=== PATIENT | male | born 1965 | race Caucasian/White ===

== ENCOUNTER 2020-06-25 07:51 | Outpatient (REF) | payer OTHER, SELFPAY ==
--- NOTE | 2020-07-10 | PFT_ITS ---
INDICATIONS: Asthma. SPIROMETRY: FEV1 to FVC of 90% with an FEV1 of 2.74 L which is 87% predicted, and FVC of 4.13 L, which is 73% predicted. The patient did decline a bronchodilator treatment. Maximum voluntary ventilation 82% predicted. LUNG VOLUMES: Total lung capacity is 78% predicted with an expiratory residual volume decreased to 19% predicted likely secondary to an elevated BMI. DIFFUSION CAPACITY: DLCO 80% predicted. COMPARISONS: None. INTERPRETATION: No obstructive ventilatory defect. Again bronchodilators were not used. Normal maximum voluntary ventilation. Lung volumes do demonstrate a mild restrictive ventilatory defect, which could be secondary to his elevated BMI, although cannot rule out neuromuscular conditions. Expiratory reserve volume is significantly decreased due to the elevated BMI. The diffusion capacity is low normal. It does correct to 115% predicted when corrected for volume suggesting hypoexpansion. Further recommendations based on forthcoming data. Clinical correlation warranted. MD ODETTE Brewster/MODIvana / [id number]
== END 2020-06-25 07:52 | disposition home or self-care (01) ==
LOC: HO.RESP 07:51
PROVIDERS: PCP Internal Medicine; Visit Provider Hospitalist
DX: J45.909 Unspecified asthma, uncomplicated (principal); Z87.891 Personal history of nicotine dependence
CPT/HCPCS: 94060; 94727; 94729

== ENCOUNTER → 2020-07-02 09:45 | Outpatient (BNVA) | payer OTHER, SELFPAY | PROVIDERS: PCP Internal Medicine; Referring Provider Internal Medicine; Visit Provider Hospitalist | DX: Z76.89 Persons encountering health services in other specified circumstances (principal) ==

== ENCOUNTER 2021-04-25 11:14 | Outpatient (REF) | payer OTHER, SELFPAY | END 2021-04-25 11:15 | disposition home or self-care (01) | LOC: HO.LNP 11:14 | PROVIDERS: Visit Provider Hospitalist | DX: J01.90 Acute sinusitis, unspecified (principal); Z20.822 Contact with and (suspected) exposure to COVID-19 | CPT/HCPCS: U0003; U0005 ==

== ENCOUNTER 2021-11-22 07:57 | Inpatient (IN) | payer OTHER, SELFPAY ==
[2021-11-22] VITALS (10 sets, daily range): BP systolic 112–178; BP diastolic 64–122; PULSE 70–102; RESP 16–28; TEMP 36.4–36.9; O2SAT 94–96; BMI 42.3
--- NOTE | ~2021-11-22 | US_ITS ---
EXAMINATION: US ABDOMEN COMPLETE CLINICAL INFORMATION: Upper abdominal pain, nausea and vomiting and diarrhea COMPARISON: None TECHNIQUE: Real-time imaging of the abdominal viscera. Exam is limited due to overlying bowel gas and patient body habitus. FINDINGS: PANCREAS: Not well visualized. ABDOMINAL AORTA: Not well visualized INFERIOR VENA CAVA: Visualized portions are normal. LIVER: Not well visualized. The liver is normal in size. The liver contour is normal. Parenchymal echogenicity is normal. No focal hepatic lesion. There is no intrahepatic biliary duct dilatation seen. GALLBLADDER: Normal. The gallbladder is physiologically distended without evidence of stones, sludge, polyps, wall thickening or pericholecystic fluid. COMMON BILE DUCT: Not visualized RIGHT KIDNEY: Normal. No hydronephrosis. No renal calculi or focal parenchymal lesions. The kidney measures 13 cm in maximum dimension. LEFT KIDNEY: Normal. No hydronephrosis. No renal calculi or focal parenchymal lesions. The kidney measures 12 cm in maximum dimension. SPLEEN: The spleen is slightly enlarged. The spleen measures 14 cm in maximum dimension. FREE FLUID: None. US/US abdomen complete IMPRESSION: Very limited exam. Slightly enlarged spleen.
--- NOTE | ~2021-11-22 | CT_ITS ---
EXAMINATION: CT ABDOMEN AND PELVIS WITH CONTRAST CLINICAL INFORMATION: Upper abdominal pain, nausea, vomiting and diarrhea with fevers. COMPARISON: Ultrasound abdomen 11/22/2021 TECHNIQUE: Multidetector volumetric images were obtained from the superior aspect of the liver through the pubic symphysis following administration 85 mL of Omnipaque 350 intravenous contrast. Sagittal and coronal reformatted images were obtained on the technologist's workstation. Oral contrast: No This CT examination was performed using dose optimization techniques as appropriate, variously including the following: *Automated exposure control *Adjustment of mA and/or kV according to patient size (this includes techniques or standardized protocols for targeted exams where dose is matched to indication/reason for exam; i.e. extremities or head) *Use of iterative reconstruction technique DLP: 1571 mGy-cm FINDINGS: LUNG BASES: The lung bases are clear. The heart size is normal. LIVER, GALLBLADDER, AND BILIARY TREE: The liver is normal in size, shape, and attenuation. No focal hepatic lesion or biliary ductal dilatation is present. The gallbladder is unremarkable with no evidence of radiopaque gallstones, gallbladder wall thickening, or obvious pericholecystic inflammatory changes. PANCREAS: Unremarkable. SPLEEN: The spleen measures borderline enlarged measuring 16 cm in length. No focal lesion seen. ADRENAL GLANDS: Unremarkable. KIDNEYS AND URETERS: Both kidneys are normal size, shape and position. There are no radiopaque renal calculi or hydronephrosis. BLADDER: Unremarkable. GASTROINTESTINAL TRACT: There are multiple dilated proximal ileal and distal jejunal loops within no transition zone seen. The most distal ileal loops are of normal caliber. There is no mural thickening or fat stranding. No free air or free fluid seen. The colon is unremarkable. The stomach is distended with oral fluid. There is no pneumatosis. ABDOMINAL WALL: No significant hernia is appreciated. LYMPH NODES: Some shotty lymph nodes are seen in the mediastinum measuring 0.4 cm in short axis and 1.1 cm lymph node in the mesentery axial image 66/3 VASCULAR: The abdominal aorta and its branches are widely patent. No evidence of aneurysm. PELVIC VISCERA: Unremarkable. OSSEOUS STRUCTURES: No free fluid or free air seen. CT/CT abdomen pelvis w con IMPRESSION: Multiple dilated small bowel loops likely jejunum and proximal ileal loops. The distal ileal loops and the terminal ileum appears normal. There is no transition zone or any etiology for mild dilatation. Small shotty mesenteric lymph nodes. No mesenteric fat stranding. Rest of the abdomen and pelvis CT is unremarkable. Fleischner guidelines were followed.
--- NOTE | 2021-11-22 08:20 | ECG_ITS ---
Test Reason : elmogy Blood Pressure : / mmHG Vent. Rate : 087 BPM Atrial Rate : 087 BPM P-R Int : 162 ms QRS Dur : 092 ms QT Int : 354 ms P-R-T Axes : 050 070 051 degrees QTc Int : 425 ms Normal sinus rhythm Normal ECG No previous ECGs available Referred By: Cheyanne Ernst Electronically Signed By:NICOLÁS MARCANO
[2021-11-22 09:46] LABS: MANUAL DIFF FLAG NO
[2021-11-22 09:49] LABS: Basophils Percent Auto 0.4 % (0-2); Eosinophils Percent Auto 0.1 % (0-4); Hematocrit 43.1 % (42.0-52.0); Hemoglobin 14.2 g/dl (14.0-18.0); Imm Gran Abs Auto 0.04 X10*3/uL (0.00-0.03); Imm Gran Pct Auto 0.5 % (0.0-0.4); Lymphocytes Absolute Auto 1.1 X10*3/uL (1.2-4.9); Lymphocytes Percent Auto 13.5 % (20-40); Mean Corpuscular HGB Conc 32.9 g/dl (31.0-36.0); Mean Corpuscular Hemoglobin 26.1 pg (27.0-33.0); Mean Corpuscular Volume 79.1 fL (80.0-98.0); Mean Platelet Volume 8.7 fL (9.4-12.4); Monocytes Absolute Auto 0.9 X10*3/uL (0.1-1.2); Monocytes Percent Auto 10.5 % (2-11); Neutrophils Absolute Auto 6.1 x10*3/uL (2.0-8.3); Platelet Count 240 X10*3/uL (160-400); Red Blood Count 5.45 X10*6/uL (4.60-5.80); White Blood Count 8.1 X10*3/uL (4.8-10.8)
[2021-11-22 09:50] LABS: Appearance Urine CLEAR; Color Urine YELLOW; Glucose Urine UA NEG (NEG); Leukocyte Esterase Urine NEG (NEG); Nitrite Urine NEG (NEG); Specific Gravity - Urine >= 1.030 (1.005-1.025); UACC Culture Trigger NO; Urine Blood TRACE (NEG); Urine Ketones NEG (NEG); Urine Protein TRACE MG/DL (NEG-TRACE)
[2021-11-22 10:04] LABS: Alanine Aminotransferase 25 U/L (0-40); Albumin Level 4.3 g/dL (3.5-5.0); Alkaline Phosphatase 64 U/L (39-117); Anion Gap 14 (12-20); Aspartate Amino Transferase 18 U/L (5-37); Bilirubin Total 0.7 mg/dL (0.0-1.0); Blood Urea Nitrogen 13 mg/dL (9-16); Calcium 9.3 mg/dL (8.4-10.2); Carbon Dioxide 22 mmol/L (22-29); Chloride 102 mmol/L (96-108); Creatinine Clr Calc Pharmacy 135.5; Estimated Glomerular Filt Rate > 60; Glucose Random 130 mg/dL (60-115); IDNOW Serial# 08D9AD1C; Influenza A Negative (Negative); Influenza B2 Negative (Negative); Potassium 3.5 mmol/L (3.3-5.1); Sodium 134 mmol/L (135-145); Total Protein 7.5 g/dL (6.5-8.0)
[2021-11-22 10:08] LABS: COVID-19 Test Negative (Negative); IDNOW Serial# 16C4AD1C
[2021-11-22 10:10] LABS: Troponin-I High Sensitivity < 3.5 ng/L (<3.5-35.0)
[2021-11-22 10:12] LABS: RBC Urine 0-2 /HPF (0); WBC Urine 0-2 /HPF (0-4)
[2021-11-22 10:13] LABS: Amorphous Sediment Urine 1+ /LPF; Mucus Urine 1+ /LPF; Squamous Epithelial Cell Urine TRACE /LPF
--- NOTE | 2021-11-22 10:15 | ED.ABDPAIN ---
HPI - Abdominal Pain General Chief Complaint: Abdominal Pain Stated Complaint: dehydration Time Seen by Provider: 11/22/21 08:18 Source: patient and EMS Mode of arrival: EMS Limitations: no limitations History of Present Illness HPI narrative: 56-year-old male with a past medical history of chronic restrictive lung disease and obstructive sleep apnea treated with BiPAP presenting to the ED with complaints of 2 days of fevers up to 102.0 with associated chills, nausea/vomiting/diarrhea and periumbilical abdominal pain. He reports he has been vomiting and having so much diarrhea that now he has developed some lightheadedness. He denies any changes in vision, neck pain, loss of taste or smell, nasal congestion/rhinorrhea, sore throat, cough, chest pain or shortness of breath, paresthesias, extremity or joint pain, rashes, recent travel or sick contacts, dyspnea on exertion, orthopnea, palpitations, radiation of the abdominal pain, back pain, dysuria, hematuria, abnormal penile discharge, black or bloody stools, black or bloody emesis, recent antibiotic usage or recent surgery, recent falls or trauma or injury, history of similar episodes or any other symptoms complaints or concerns at this time. MD elicited complaint: abdominal pain Pertinent past history: none Onset (ago): day(s) (2) Pain Consistency: constant Location: periumbilical Severity: moderate Quality: cramping and aching Radiation: none Migration to: no migration Exacerbating factors: eating, bowel movement and vomiting Relieving factors: nothing Associated symptoms: nausea, vomiting, diarrhea, fever, chills and other (Lightheadedness) Related Data Home Medications Medication Instructions Recorded Confirmed aspirin 81 mg tablet,delayed 81 mg PO BEDTIME 07/02/20 11/22/21 release lisinopril 10 mg tablet 10 mg PO BEDTIME 07/02/20 11/22/21 lorazepam 0.5 mg tablet 0.5 mg PO DAILY PRN 07/02/20 11/22/21 albuterol sulfate 90 mcg/actuation 2 puff PO Q6H PRN 11/22/21 11/22/21 aerosol inhaler Allergies Allergy/AdvReac Type Severity Reaction Status Date / Time Amoxicillin Allergy Mild Hives Uncoded 07/02/20 20:05 PCN Allergy Mild Hives Uncoded 07/02/20 20:05 Review of Systems Review of Systems Constitutional : + fever/chills/fatigue/malaise, No Weight loss, No Night Sweats ENT/Mouth : No Hearing loss, No Ear Pain, No Nasal Congestion, No Sinus Pain, No Hoarseness, No sore throat, No Rhinorrhea, No Swallowing Difficulty Eyes: No Eye Pain, No Swelling, No Redness, No Foreign Body, No Discharge, No Vision Changes Cardiovascular : No Chest Pain, No SOB, No Dyspnea on Exertion, No Orthopnea, No Edema, No Palpitations Respiratory : No Cough, No Sputum, No Wheezing, No Smoke Exposure, No Dyspnea Gastrointestinal : + nausea/vomiting/diarrhea and periumbilical abdominal pain, No Constipation, No Hematochezia, No Melena Genitourinary : no irregular bleeding, No Dysuria, No Urinary Frequency, No Hematuria, No Urinary Incontinence, No Urgency, No Flank Pain, No Urinary Flow Changes, No Hesitancy Musculoskeletal : No joint pain, No Myalgias, No Joint Swelling Skin : No Skin Lesions, No rash Neuro : No Weakness, No Numbness, No Paresthesias, No Loss of Consciousness, No Dizziness, No Headache Psych : No Anxiety/Panic, No Depression, No SI/HI/AH/VH, No Social Issues, Heme/Lymph: No Bruising, No Bleeding,No Lymphadenopathy Endocrine : No Polyuria, No Polydipsia, No Temperature Intolerance Yes all other systems are reviewed and are negative [facility] Past Medical History Attestation statement: The following information was validated with the patient. Medical History Chronic restrictive lung disease Dyspnea BRICE treated with BiPAP Social History Social History Alcohol intake: never Patient Tobacco Use Status: Never used Tobacco Use of substances other than those prescribed or required for medical reasons: No Advance Directives: Yes Advance Directives Information Provided: Yes Advance Directives on File: No Physical Exam ED Vital Signs: Vital Signs - 24 hr 11/22/21 09:48 11/22/21 09:49 11/22/21 09:50 Pulse Rate 82 89 102 H Blood Pressure 128/83 134/75 130/78 BMI result Body Mass Index 42.3 Vital signs have been reviewed and all within normal limits Appearance: Alert. Oriented X3. No acute distress. Head: Normal external exam. Normocephalic. Eyes: PERRLA. EOMI. Conjunctiva and sclera normal. Eyelids normal. ENT: Pharynx normal. Uvula midline. Moist mucous membranes. No trismus noted. No drooling noted. No muffled voice noted. Neck: Normal inspection. Neck supple. FROM. No adenopathy. No meningeal signs. CVS: Normal heart rate and rhythm. Heart sound normal. No murmurs noted. Pulses normal throughout. Respiratory: No respiratory distress. Painless inspiration. Breath sounds normal. No wheezes/rales/rhonchi noted. Chest nontender. No accessory muscle usage noted or decreased air movement noted. Abdomen: Soft and mild tenderness to the epigastric/upper abdomen/periumbilical area. Nondistended. No guarding. No rigidity. Bowel sounds normal in all 4 quadrants. No distention noted. No organomegaly noted. No visible injury noted. No rebound tenderness. Negative Rovsing sign. Negative obturator's sign. Negative psoas sign. Negative Negrete sign. Back: No CVA tenderness. Full range of motion noted. Skin: Skin warm and dry. Normal skin color. Normal skin turgor. No rashes/lesions/lacerations noted. Extremities: Extremities exhibit normal range of motion. Extremities nontender. No lower extremity edema or calf tenderness noted. Neuro: Oriented X 3. No motor deficit. No sensory deficit. Reflexes normal. Normal steady gait. CN's II-XII intact bilaterally? Vascular: +2 radial pulses bilaterally. +2 distal pedal pulses bilaterally. Normal capillary refill to all upper and lower extremity nails. No cyanosis noted to upper lower extremities. Course Course Course Narrative: 9:30am - 56-year-old male with a past medical history of chronic restrictive lung disease and obstructive sleep apnea treated with BiPAP presenting to the ED with complaints of 2 days of fevers up to 102.0 with associated chills, nausea/vomiting/diarrhea and periumbilical abdominal pain. He reports he has been vomiting and having so much diarrhea that now he has developed some lightheadedness. Plan: Labs, UA, COVID influenza swab, stool culture, C diff culture, CT scan abdomen and pelvis with IV contrast, orthostatic vitals, EKG. Provide a L of IV fluids and re-evaluate. Reevaluation(s) Reevaluation #1: - labs revealed and sodium 134. Random glucose 130. Otherwise all other labs are within normal limits. UA within normal limits no evidence of UTI. Patient negative for C diff. Patient negative for leukocytes in the stool. Patient negative for COVID and influenza. - CT scan abdomen pelvis with IV contrast revealed an ileus otherwise no other acute processes were noted. Not c/w c a bowel obstruction - therefore I discussed this with the patient and due to him complaining of nausea/vomiting and diarrhea and diffuse abdominal pain unable to keep anything down will admit for ileus with associated nausea/vomiting/diarrhea and fevers. Patient understands agrees with this plan. - Dr. Oliver to admit at this time. Time: 12:02 [facility] - Abdominal Pain Medical Records Attestation: I reviewed the patient's medical records. Lab Data Attestation: I reviewed the patient's lab results. Result diagrams: 11/22/21 09:41 11/22/21 09:41 Labs: Lab Results 11/22/21 11/22/21 11/22/21 Range/Units 09:41 09:41 09:41 WBC 8.1 (4.8-10.8) X10*3/uL RBC 5.45 (4.60-5.80) X10*6/uL Hgb 14.2 (14.0-18.0) g/dl Hct 43.1 (42.0-52.0) % MCV 79.1 L (80.0-98.0) fL MCH 26.1 L (27.0-33.0) pg MCHC 32.9 (31.0-36.0) g/dl RDW 13.0 (11.0-16.0) % Plt Count 240 (160-400) X10*3/uL MPV 8.7 L (9.4-12.4) fL Immature Gran % (Auto) 0.5 H (0.0-0.4) % Neut % (Auto) 75.0 H (45-73) % Lymph % (Auto) 13.5 L (20-40) % [place] % (Auto) 10.5 (2-11) % Eos % (Auto) 0.1 (0-4) % Baso % (Auto) 0.4 (0-2) % Lymph # (Auto) 1.1 L (1.2-4.9) X10*3/uL [place] # (Auto) 0.9 (0.1-1.2) X10*3/uL Eos # (Auto) 0.0 (0.0-0.4) X10*3/uL Baso # (Auto) 0.0 (0.0-0.2) X10*3/uL Abs Immat Gran (auto) 0.04 H (0.00-0.03) X10*3/uL Absolute Neuts (auto) 6.1 (2.0-8.3) x10*3/uL Absolute Nucleated RBC 0.000 (0.0-0.012) X10*3/uL Nucleated RBC % (auto) 0.0 (0.0-0.2) /100WBC Sodium 134 L (135-145) mmol/L Potassium 3.5 (3.3-5.1) mmol/L Chloride 102 (96-108) mmol/L Carbon Dioxide 22 (22-29) mmol/L Anion Gap 14 (12-20) BUN 13 (9-16) mg/dL Creatinine 0.94 (0.5-1.4) mg/dL Estim Creat Clear Calc 135.5 Estimated GFR > 60 Random Glucose 130 H (60-115) mg/dL Calcium 9.3 (8.4-10.2) mg/dL Total Bilirubin 0.7 (0.0-1.0) mg/dL AST 18 (5-37) U/L ALT 25 (0-40) U/L Alkaline Phosphatase 64 (39-117) U/L Troponin I High Sens (<3.5-35.0) ng/L Total Protein 7.5 (6.5-8.0) g/dL Albumin 4.3 (3.5-5.0) g/dL Lipase 14 (8-78) U/L Urine Color Urine Appearance Urine pH (5.0-8.0) Ur Specific [place] (1.005-1.025) Urine Protein (NEG-TRACE) MG/DL Urine Glucose (UA) (NEG) MG/DL Urine Ketones (NEG) MG/DL Urine Blood (NEG) Urine Nitrite (NEG) Ur Leukocyte Esterase (NEG) Urine RBC (0) /HPF Urine WBC (0-4) /HPF Ur Squamous Epith Cells /LPF Amorphous Sediment /LPF Urine Bacteria /LPF Urine Mucus /LPF Stool Leukocytes, Qual (NEGATIVE) C. difficile Tox B Gene (Negative) COVID-19 (ANJALI) (Negative) COVID-19 Clin Com Influenza Type A (ABDON) Negative (Negative) Influenza Type B (ABDON) Negative (Negative) Influenza A & B Note See Note 11/22/21 11/22/21 11/22/21 Range/Units 09:41 09:41 09:41 WBC (4.8-10.8) X10*3/uL RBC (4.60-5.80) X10*6/uL Hgb (14.0-18.0) g/dl Hct (42.0-52.0) % MCV (80.0-98.0) fL MCH (27.0-33.0) pg MCHC (31.0-36.0) g/dl RDW (11.0-16.0) % Plt Count (160-400) X10*3/uL MPV (9.4-12.4) fL Immature Gran % (Auto) (0.0-0.4) % Neut % (Auto) (45-73) % Lymph % (Auto) (20-40) % [place] % (Auto) (2-11) % Eos % (Auto) (0-4) % Baso % (Auto) (0-2) % Lymph # (Auto) (1.2-4.9) X10*3/uL [place] # (Auto) (0.1-1.2) X10*3/uL Eos # (Auto) (0.0-0.4) X10*3/uL Baso # (Auto) (0.0-0.2) X10*3/uL Abs Immat Gran (auto) (0.00-0.03) X10*3/uL Absolute Neuts (auto) (2.0-8.3) x10*3/uL Absolute Nucleated RBC (0.0-0.012) X10*3/uL Nucleated RBC % (auto) (0.0-0.2) /100WBC Sodium (135-145) mmol/L Potassium (3.3-5.1) mmol/L Chloride (96-108) mmol/L Carbon Dioxide (22-29) mmol/L Anion Gap (12-20) BUN (9-16) mg/dL Creatinine (0.5-1.4) mg/dL Estim Creat Clear Calc Estimated GFR Random Glucose (60-115) mg/dL Calcium (8.4-10.2) mg/dL Total Bilirubin (0.0-1.0) mg/dL AST (5-37) U/L ALT (0-40) U/L Alkaline Phosphatase (39-117) U/L Troponin I High Sens < 3.5 (<3.5-35.0) ng/L Total Protein (6.5-8.0) g/dL Albumin (3.5-5.0) g/dL Lipase (8-78) U/L Urine Color YELLOW Urine Appearance CLEAR Urine pH 6.0 (5.0-8.0) Ur Specific [place] >= 1.030 H (1.005-1.025) Urine Protein TRACE (NEG-TRACE) MG/DL Urine Glucose (UA) NEG (NEG) MG/DL Urine Ketones NEG (NEG) MG/DL Urine Blood TRACE (NEG) Urine Nitrite NEG (NEG) Ur Leukocyte Esterase NEG (NEG) Urine RBC 0-2 (0) /HPF Urine WBC 0-2 (0-4) /HPF Ur Squamous Epith Cells TRACE /LPF Amorphous Sediment 1+ /LPF Urine Bacteria NONE /LPF Urine Mucus 1+ /LPF Stool Leukocytes, Qual (NEGATIVE) C. difficile Tox B Gene (Negative) COVID-19 (ANJALI) Negative (Negative) COVID-19 Clin Com See Note Influenza Type A (ABDON) (Negative) Influenza Type B (ABDON) (Negative) Influenza A & B Note 11/22/21 11/22/21 Range/Units 09:42 09:42 WBC (4.8-10.8) X10*3/uL RBC (4.60-5.80) X10*6/uL Hgb (14.0-18.0) g/dl Hct (42.0-52.0) % MCV (80.0-98.0) fL MCH (27.0-33.0) pg MCHC (31.0-36.0) g/dl RDW (11.0-16.0) % Plt Count (160-400) X10*3/uL MPV (9.4-12.4) fL Immature Gran % (Auto) (0.0-0.4) % Neut % (Auto) (45-73) % Lymph % (Auto) (20-40) % [place] % (Auto) (2-11) % Eos % (Auto) (0-4) % Baso % (Auto) (0-2) % Lymph # (Auto) (1.2-4.9) X10*3/uL [place] # (Auto) (0.1-1.2) X10*3/uL Eos # (Auto) (0.0-0.4) X10*3/uL Baso # (Auto) (0.0-0.2) X10*3/uL Abs Immat Gran (auto) (0.00-0.03) X10*3/uL Absolute Neuts (auto) (2.0-8.3) x10*3/uL Absolute Nucleated RBC (0.0-0.012) X10*3/uL Nucleated RBC % (auto) (0.0-0.2) /100WBC Sodium (135-145) mmol/L Potassium (3.3-5.1) mmol/L Chloride (96-108) mmol/L Carbon Dioxide (22-29) mmol/L Anion Gap (12-20) BUN (9-16) mg/dL Creatinine (0.5-1.4) mg/dL Estim Creat Clear Calc Estimated GFR Random Glucose (60-115) mg/dL Calcium (8.4-10.2) mg/dL Total Bilirubin (0.0-1.0) mg/dL AST (5-37) U/L ALT (0-40) U/L Alkaline Phosphatase (39-117) U/L Troponin I High Sens (<3.5-35.0) ng/L Total Protein (6.5-8.0) g/dL Albumin (3.5-5.0) g/dL Lipase (8-78) U/L Urine Color Urine Appearance Urine pH (5.0-8.0) Ur Specific [place] (1.005-1.025) Urine Protein (NEG-TRACE) MG/DL Urine Glucose (UA) (NEG) MG/DL Urine Ketones (NEG) MG/DL Urine Blood (NEG) Urine Nitrite (NEG) Ur Leukocyte Esterase (NEG) Urine RBC (0) /HPF Urine WBC (0-4) /HPF Ur Squamous Epith Cells /LPF Amorphous Sediment /LPF Urine Bacteria /LPF Urine Mucus /LPF Stool Leukocytes, Qual NEGATIVE (NEGATIVE) C. difficile Tox B Gene NEGATIVE (Negative) COVID-19 (ANJALI) (Negative) COVID-19 Clin Com Influenza Type A (ABDON) (Negative) Influenza Type B (ABDON) (Negative) Influenza A & B Note Imaging Data Abdominal ultrasound: Attestation: I personally reviewed and interpreted this imaging study as follows: Radiologist's impression: FINDINGS: PANCREAS: Not well visualized. ABDOMINAL AORTA: Not well visualized INFERIOR VENA CAVA: Visualized portions are normal. LIVER: Not well visualized. The liver is normal in size. The liver contour is normal. Parenchymal echogenicity is normal. No focal hepatic lesion. There is no intrahepatic biliary duct dilatation seen. GALLBLADDER: Normal. The gallbladder is physiologically distended without evidence of stones, sludge, polyps, wall thickening or pericholecystic fluid. COMMON BILE DUCT: Not visualized RIGHT KIDNEY: Normal. No hydronephrosis. No renal calculi or focal parenchymal lesions. The kidney measures 13 cm in maximum dimension. LEFT KIDNEY: Normal. No hydronephrosis. No renal calculi or focal parenchymal lesions. The kidney measures 12 cm in maximum dimension. SPLEEN: The spleen is slightly enlarged. The spleen measures 14 cm in maximum dimension. FREE FLUID: None. US/US abdomen complete IMPRESSION: Very limited exam. Slightly enlarged spleen. CT scan abdomen pelvis with IV contrast: Attestation: I personally reviewed and interpreted this imaging study as follows: Radiologist's impression: FINDINGS: LUNG BASES: The lung bases are clear. The heart size is normal.? LIVER, GALLBLADDER, AND BILIARY TREE: The liver is normal in size, shape, and attenuation. No focal hepatic lesion or biliary ductal dilatation is present. The gallbladder is unremarkable with no evidence of radiopaque gallstones, gallbladder wall thickening, or obvious pericholecystic inflammatory changes.? PANCREAS: Unremarkable.? SPLEEN: The spleen measures borderline enlarged measuring 16 cm in length. No focal lesion seen.? ADRENAL GLANDS: Unremarkable.? KIDNEYS AND URETERS: Both kidneys are normal size, shape and position. There are no radiopaque renal calculi or hydronephrosis.? BLADDER: Unremarkable.? GASTROINTESTINAL TRACT: There are multiple dilated proximal ileal and distal jejunal loops within no transition zone seen. The most distal ileal loops are of normal caliber. There is no mural thickening or fat stranding. No free air or free fluid seen. The colon is unremarkable. The stomach is distended with oral fluid. There is no pneumatosis. ABDOMINAL WALL: No significant hernia is appreciated.? LYMPH NODES: Some shotty lymph nodes are seen in the mediastinum measuring 0.4 cm in short axis and 1.1 cm lymph node in the mesentery axial image 66/3 VASCULAR: The abdominal aorta and its branches are widely patent. No evidence of aneurysm. PELVIC VISCERA: Unremarkable.? OSSEOUS STRUCTURES: No free fluid or free air seen.? CT/CT abdomen pelvis w con IMPRESSION: Multiple dilated small bowel loops likely jejunum and proximal ileal loops. The distal ileal loops and the terminal ileum appears normal. There is no transition zone or any etiology for mild dilatation. ? Small shotty mesenteric lymph nodes. No mesenteric fat stranding. ? Rest of the abdomen and pelvis CT is unremarkable. ? Fleischner guidelines were followed. ECG Data Attestation: I personally reviewed and interpreted this ECG as follows: ECG interpretation date: 11/22/21 ECG interpretation time: 08:27 Prior ECG tracings: not available for review Interpretation: Normal sinus rhythm with ventricular rate of 87 with a normal [place] interval normal QRS duration normal QT/QTC interval. No acute ischemic change are noted. No prior EKGs in our system to compare to at this time. Critical Care Time Critical Care Time Critical Care Time: Yes Total Critical Care Time: 60 Attestation: I personally attest to this time spent taking care of the patient Discharge Plan Discharge Clinical Impression: Ileus, Nausea & vomiting, Diarrhea Patient Disposition: Admitted As Inpatient
[2021-11-22 10:38] LABS: Lipase 14 U/L (8-78)
[2021-11-22] MEDS: iohexoL 350 MG/ML 100 ML INFUS..BTL IV (10:39)
[2021-11-22 10:55] LABS: CDiff Gene PCR NEGATIVE (Negative)
[2021-11-22] MEDS: Famotidine/PF 20 MG/2 ML VIAL IVPUSH (11:28)
[2021-11-22 11:44] LABS: Leukocytes Stool Qualitative NEGATIVE (NEGATIVE)
--- NOTE | 2021-11-22 12:13 | PHA.MEDREC ---
Pharmacy Consult ? Medication Reconciliation Pharmacy has completed the medication reconciliation. There are no remarkable issues for provider's attention. Karla Guzman, MakaylaD
--- NOTE | 2021-11-22 13:29 | PM.IMHP ---
History of Present Illness Date of Service: 11/22/21 Chief Complaint: fever, vomiting, diarrhea 56 year-old male with BRICE on BiPAP, morbid obesity, HTN presenting with 2 days of fever up to 102F with chills, nausea, vomiting, and watery diarrhea along with generalized abodminal cramping. Feels lightheaded from all of the vomiting. No hematemesis, hematochezia, dysuria, or hematuria. No recent high overseas travel, camping, or high-risk food exposures. No sick contacts but he liesv alone. No recent antibiotic usage. In the ED, stool for Clostridium difficile was negative and fecal leukocytes were negative. CT scan of the abdomen and pelvis showed ileus and mesenteric lymphadenopathy. [facility]LY [facility] Medical History Chronic restrictive lung disease Dyspnea BRICE treated with BiPAP Family History (Updated 11/22/21 @ 13:49 by Felix Oliver MD) Brother Diabetes Social History Alcohol intake: never Patient Tobacco Use Status: Never used Tobacco Use of substances other than those prescribed or required for medical reasons: No Advance Directives: Yes Advance Directives Information Provided: Yes Advance Directives on File: No Meds Allergies Allergy/AdvReac Type Severity Reaction Status Date / Time Amoxicillin Allergy Mild Hives Uncoded 07/02/20 20:05 PCN Allergy Mild Hives Uncoded 07/02/20 20:05 Active Medications: Current Medications Acetaminophen (Acetaminophen 325 Mg Tablet) 650 mg PO Q6H PRN PRN Reason: Pain, Mild (Pain Scale 1-3) Albuterol Sulfate (Albuterol Sulfate 90 Mcg 8 Gm Inhaler) 2 puff INHALE Q6H PRN PRN Reason: Wheezing Aspirin (Aspirin Enteric Coated 81 Mg Tablet.Dr) 81 mg PO BEDTIME TIFFANIE Enoxaparin Sodium (Enoxaparin Sodium 40 Mg/0.4 Ml Syringe) 40 mg SUBCUT Q24H TIFFANIE Lactated Ringer's (Lr) 1,000 mls @ 125 mls/hr IVCONT .Q8H TIFFANIE Lisinopril (Lisinopril 10 Mg Tablet) 10 mg PO BEDTIME TIFFANIE; Protocol Lorazepam (Lorazepam 0.5 Mg Tablet) 0.5 mg PO DAILY PRN PRN Reason: Anxiety Ondansetron HCl (Ondansetron Hcl 4 Mg/2 Ml Vial) 4 mg IVPUSH Q8H PRN PRN Reason: Nausea and Vomiting Pharmacy Consult (Consult Rx Perform Med Rec) 1 each MISCELLANE ONCE PRN PRN Reason: Consult order Sodium Chloride (0.9 % Sodium Chloride Flush 3 Ml Syringe) [address] [facility] Home Medications Medication Instructions Recorded Confirmed Last Taken Type aspirin 81 mg tablet,delayed 81 mg PO BEDTIME 07/02/20 11/22/21 Unknown History release lisinopril 10 mg tablet 10 mg PO BEDTIME 07/02/20 11/22/21 Unknown History lorazepam 0.5 mg tablet 0.5 mg PO DAILY PRN 07/02/20 11/22/21 Unknown History albuterol sulfate 90 mcg/actuation 2 puff PO Q6H PRN 11/22/21 11/22/21 Unknown History aerosol inhaler Physical Exam Vital Signs and Narrative: Vital Signs: Last Vital Signs Pulse 102 H 11/22/21 09:50 BP 130/78 11/22/21 09:50 BMI result Body Mass Index 42.3 Gen: in no acute distress HEENT: sclera anicteric, moist mucus membranes Neck: supple Lungs: clear to auscultation bilaterally Heart: regular rate and rhythm, no murmurs Abd: soft, obese, diffuse tenderness without rebound/guarding Ext: no edema Skin: warm/well-perfused Neuro: alert and oriented x3, no focal findings Psych: appropriate affect Results Labs CBC and Chem 7: 11/22/21 09:41 11/22/21 09:41 Labs: Laboratory Results - last 24 hr 11/22/21 11/22/21 11/22/21 09:41 09:41 09:41 MCV 79.1 L MCH 26.1 L MCHC 32.9 RDW 13.0 Plt Count 240 MPV 8.7 L Immature Gran % (Auto) 0.5 H Neut % (Auto) 75.0 H Lymph % (Auto) 13.5 L L[place] % (Auto) 10.5 Eos % (Auto) 0.1 Baso % (Auto) 0.4 Lymph # (Auto) 1.1 L [place] # (Auto) 0.9 Eos # (Auto) 0.0 Baso # (Auto) 0.0 Abs Immat Gran (auto) 0.04 H Absolute Neuts (auto) 6.1 Absolute Nucleated RBC 0.000 Nucleated RBC % (auto) 0.0 Anion Gap 14 Estim Creat Clear Calc 135.5 Estimated GFR > 60 Random Glucose 130 H Calcium 9.3 Total Bilirubin 0.7 AST 18 ALT 25 Alkaline Phosphatase 64 Total Protein 7.5 Albumin 4.3 Lipase 14 Urine Color Urine Appearance Urine pH Ur Specific [place] Urine Protein Urine Glucose (UA) Urine Ketones Urine Blood Urine Nitrite Ur Leukocyte Esterase Urine RBC Urine WBC Ur Squamous Epith Cells Amorphous Sediment Urine Bacteria Urine Mucus Stool Leukocytes, Qual C. difficile Tox B Gene COVID-19 (ANJALI) COVID-19 Clin Com Influenza Type A (ABDON) Negative Influenza Type B (ABDON) Negative Influenza A & B Note See Note 11/22/21 11/22/21 11/22/21 09:41 09:41 09:42 MCV MCH MCHC RDW Plt Count MPV Immature Gran % (Auto) Neut % (Auto) Lymph % (Auto) [place] % (Auto) Eos % (Auto) Baso % (Auto) Lymph # (Auto) [place] # (Auto) Eos # (Auto) Baso # (Auto) Abs Immat Gran (auto) Absolute Neuts (auto) Absolute Nucleated RBC Nucleated RBC % (auto) Anion Gap Estim Creat Clear Calc Estimated GFR Random Glucose Calcium Total Bilirubin AST ALT Alkaline Phosphatase Total Protein Albumin Lipase Urine Color YELLOW Urine Appearance CLEAR Urine pH 6.0 Ur Specific [place] >= 1.030 H Urine Protein TRACE Urine Glucose (UA) NEG Urine Ketones NEG Urine Blood TRACE Urine Nitrite NEG Ur Leukocyte Esterase NEG Urine RBC 0-2 Urine WBC 0-2 Ur Squamous Epith Cells TRACE Amorphous Sediment 1+ Urine Bacteria NONE Urine Mucus 1+ Stool Leukocytes, Qual NEGATIVE C. difficile Tox B Gene COVID-19 (ANJALI) Negative COVID-19 Clin Com See Note Influenza Type A (ABDON) Influenza Type B (ABDON) Influenza A & B Note 11/22/21 09:42 MCV MCH MCHC RDW Plt Count MPV Immature Gran % (Auto) Neut % (Auto) Lymph % (Auto) Luce % (Auto) Eos % (Auto) Baso % (Auto) Lymph # (Auto) Luce # (Auto) Eos # (Auto) Baso # (Auto) Abs Immat Gran (auto) Absolute Neuts (auto) Absolute Nucleated RBC Nucleated RBC % (auto) Anion Gap Estim Creat Clear Calc Estimated GFR Random Glucose Calcium Total Bilirubin AST ALT Alkaline Phosphatase Total Protein Albumin Lipase Urine Color Urine Appearance Urine pH Ur Specific [place] Urine Protein Urine Glucose (UA) Urine Ketones Urine Blood Urine Nitrite Ur Leukocyte Esterase Urine RBC Urine WBC Ur Squamous Epith Cells Amorphous Sediment Urine Bacteria Urine Mucus Stool Leukocytes, Qual C. difficile Tox B Gene NEGATIVE COVID-19 (ANJALI) COVID-19 Clin Com Influenza Type A (ABDON) Influenza Type B (ABDON) Influenza A & B Note ITS Impressions Abdomen Ultrasound 11/22/21 09:31 IMPRESSION: Very limited exam. Slightly enlarged spleen. Abdomen/Pelvis CT 11/22/21 10:40 IMPRESSION: Multiple dilated small bowel loops likely jejunum and proximal ileal loops. The distal ileal loops and the terminal ileum appears normal. There is no transition zone or any etiology for mild dilatation. Small shotty mesenteric lymph nodes. No mesenteric fat stranding. Rest of the abdomen and pelvis CT is unremarkable. Fleischner guidelines were followed. Imaging Radiologist's Impressions: Impressions Abdomen Ultrasound 11/22/21 09:31 IMPRESSION: Very limited exam. Slightly enlarged spleen. Abdomen/Pelvis CT 11/22/21 10:40 IMPRESSION: Multiple dilated small bowel loops likely jejunum and proximal ileal loops. The distal ileal loops and the terminal ileum appears normal. There is no transition zone or any etiology for mild dilatation. Small shotty mesenteric lymph nodes. No mesenteric fat stranding. Rest of the abdomen and pelvis CT is unremarkable. Fleischner guidelines were followed. Assessment and Plan (1) Ileus: Status: Acute Plan 56yo M with morbid obesity, BRICE on CPAP presenting with 2 days of nausea, vomiting, and watery diarrhea with fever and found to have ileus # ileus - admit to Med/Surg, bowel rest, IV fluids - likely secondary to gastroenteritis; follow stool cultures; prn loperamide # BRICE - CPAP at night # HTN - lisinopril # anxiety - prn lorazepam # morbid obesity - outpt bariatrics eval to be considered # VTE ppx - LMWH # code - full In my professional opinion, patient likely will stay 2 midnights in hospital due to the above reasons: ileus, NPO, IV fluids. Quality Stroke Does the patient have a stroke diagnosis?: No VTE Prior VTE?: No VTE Risk Level:: Medical - moderate - high VTE Device Contraindication: N/A - Device Ordered VTE Drug Contraindication: N/A - Med Ordered
[2021-11-22 13:47] LABS: C Reactive Protein 8.42 mg/dL (< or = 0.50)
[2021-11-22] MEDS: Lactated Ringers 1,000 ML 125 ML IVCONT ×2 (14:27→21:56)
--- NOTE | 2021-11-22 14:32 | PC.NURSE ---
pt state diarrhea 7-8 times since in ed today. aware.
[2021-11-22] MEDS: Loperamide HCl 2 MG CAPSULE PO (14:42)
--- NOTE | 2021-11-22 15:58 | PC.NURSE ---
Attempt to call floor with report, no answer, will try again.
--- NOTE | 2021-11-22 16:50 | PC.NURSE ---
Second attempt at report, RN to call back
[2021-11-22] MEDS: Aspirin Enteric Coated 81 MG TABLET.DR PO (20:43)
[2021-11-22] MEDS: lisinopriL 10 MG TABLET PO (20:43)
[2021-11-23 05:48] LABS: MANUAL DIFF FLAG NO
[2021-11-23 05:54] LABS: Basophils Percent Auto 0.5 % (0-2); Eosinophils Absolute Auto 0.2 X10*3/uL (0.0-0.4); Eosinophils Percent Auto 2.6 % (0-4); Hemoglobin 13.4 g/dl (14.0-18.0); Imm Gran Abs Auto 0.05 X10*3/uL (0.00-0.03); Imm Gran Pct Auto 0.7 % (0.0-0.4); Lymphocytes Absolute Auto 2.2 X10*3/uL (1.2-4.9); Lymphocytes Percent Auto 29.6 % (20-40); Mean Corpuscular HGB Conc 32.7 g/dl (31.0-36.0); Mean Corpuscular Hemoglobin 25.8 pg (27.0-33.0); Mean Platelet Volume 9.3 fL (9.4-12.4); Monocytes Absolute Auto 0.9 X10*3/uL (0.1-1.2); Monocytes Percent Auto 12.6 % (2-11); Platelet Count 243 X10*3/uL (160-400); Red Blood Count 5.19 X10*6/uL (4.60-5.80); White Blood Count 7.4 X10*3/uL (4.8-10.8)
[2021-11-23] MEDS: Lactated Ringers 1,000 ML 125 ML IVCONT ×3 (06:04→22:27)
[2021-11-23 06:07] VITALS: PULSE 74; RESP 23; O2SAT 97
[2021-11-23 06:10] LABS: Anion Gap 15 (12-20); Blood Urea Nitrogen 11 mg/dL (9-16); Calcium 8.9 mg/dL (8.4-10.2); Carbon Dioxide 22 mmol/L (22-29); Chloride 104 mmol/L (96-108); Creatinine Clr Calc Pharmacy 155.3; Estimated Glomerular Filt Rate > 60; Glucose Random 99 mg/dL (60-115); Potassium 3.5 mmol/L (3.3-5.1); Sodium 137 mmol/L (135-145)
[2021-11-23 07:44] VITALS: BP 112/69; PULSE 76; RESP 19; TEMP 36.9; O2SAT 95
--- NOTE | 2021-11-23 09:06 | MHC.CM.PN ---
PT REPORTS HE LIVES ALONE AND IS INDEPENDENT WITH CARE PT HAS NO HOME SERVICES AND ONLY A BIPAP FOR DME PT REPORTS HE HAS A HCP NAMING HIS DAUGHTER, SATURNINO, HIS AGENT COPY REQUESTED PT CONFIRMS HIS PCP IS LINDSEY MOORE PT REPORTS HE IS COVID-19 VACCINATED WITH PFIZER X 3 CURRENT DC PLAN IS HOME WITH NO SERVICES DAUGHTER TO TRANSPORT
--- NOTE | 2021-11-23 10:59 | HO.PM.IMPN ---
Subjective Subjective Date of Service: 11/23/21 Interval History: Nausea improved, wants to try clear liquids Passing gas + watery stool Abd pain improved Review of Systems Review of Systems: Yes all other systems are reviewed and are negative Physical Exam Vital Signs: Vital Signs: Last Vital Signs Temp 98.5 F 11/23/21 07:44 Pulse 76 11/23/21 07:44 Resp 19 11/23/21 07:44 BP 112/69 11/23/21 07:44 Pulse Ox 95 11/23/21 07:44 BMI result Body Mass Index 42.3 Gen: in no acute distress HEENT: sclera anicteric, moist mucus membranes Neck: supple Lungs: clear to auscultation bilaterally Heart: regular rate and rhythm, no murmurs Abd: soft, obese, nontender Ext: no edema Skin: warm/well-perfused Neuro: alert and oriented x3, no focal findings Psych: appropriate affect Objective Data Active Medications Acetaminophen (Acetaminophen 325 Mg Tablet) 650 mg PO Q6H PRN PRN Reason: Pain, Mild (Pain Scale 1-3) Albuterol Sulfate (Albuterol Sulfate 90 Mcg 8 Gm Inhaler) 2 puff INHALE Q6H PRN PRN Reason: Wheezing Aspirin (Aspirin Enteric Coated 81 Mg Tablet.Dr) 81 mg PO BEDTIME ON LICENSE OF [facility] Last Admin: 11/22/21 20:43 Dose: 81 mg Documented by: ONOFRE Enoxaparin Sodium (Enoxaparin Sodium 40 Mg/0.4 Ml Syringe) 40 mg SUBCUT Q24H ON LICENSE OF [facility] Last Admin: 11/22/21 14:37 Dose: Not Given Documented by: STANLEY Non-Admin Reason: Patient Refused Lactated Ringer's (Lr) 1,000 mls @ 125 mls/hr IVCONT .Q8H TIFFANIE Last Admin: 11/23/21 06:04 Dose: 125 mls/hr Documented by: ODRISM Lisinopril (Lisinopril 10 Mg Tablet) 10 mg PO BEDTIME ON LICENSE OF [facility]; Protocol Last Admin: 11/22/21 20:43 Dose: 10 mg Documented by: ONOFRE Loperamide HCl (Loperamide Hcl 2 Mg Capsule) 2 mg PO Q4H PRN PRN Reason: diarrhea Last Admin: 11/22/21 14:42 Dose: 2 mg Documented by: HO.SCOC Lorazepam (Lorazepam 0.5 Mg Tablet) 0.5 mg PO DAILY PRN PRN Reason: Anxiety Ondansetron HCl (Ondansetron Hcl 4 Mg/2 Ml Vial) 4 mg IVPUSH Q8H PRN PRN Reason: Nausea and Vomiting Pharmacy Consult (Consult Rx Perform Med Rec) 1 each MISCELLANE ONCE PRN PRN Reason: Consult order Sodium Chloride (0.9 % Sodium Chloride Flush 3 Ml Syringe) 3 ml IVFLUSH QSHIFT ON LICENSE OF [facility] Last Admin: 11/23/21 07:18 Dose: Not Given Documented by: KARRI Non-Admin Reason: IV Running Labs CBC & Chem 7: 11/23/21 05:17 11/23/21 05:17 Labs: Laboratory Results - last 24 hr 11/22/21 11/22/21 11/23/21 09:41 09:42 05:17 MCV 79.0 L MCH 25.8 L MCHC 32.7 RDW 13.0 Plt Count 243 MPV 9.3 L Immature Gran % (Auto) 0.7 H Neut % (Auto) 54.0 Lymph % (Auto) 29.6 [place] % (Auto) 12.6 H Eos % (Auto) 2.6 Baso % (Auto) 0.5 Lymph # (Auto) 2.2 [place] # (Auto) 0.9 Eos # (Auto) 0.2 Baso # (Auto) 0.0 Abs Immat Gran (auto) 0.05 H Absolute Neuts (auto) 4.0 Absolute Nucleated RBC 0.000 Nucleated RBC % (auto) 0.0 Anion Gap Estim Creat Clear Calc Estimated GFR Random Glucose Calcium C-Reactive Protein 8.42 H Stool Leukocytes, Qual NEGATIVE 11/23/21 05:17 MCV MCH MCHC RDW Plt Count MPV Immature Gran % (Auto) Neut % (Auto) Lymph % (Auto) [place] % (Auto) Eos % (Auto) Baso % (Auto) Lymph # (Auto) [place] # (Auto) Eos # (Auto) Baso # (Auto) Abs Immat Gran (auto) Absolute Neuts (auto) Absolute Nucleated RBC Nucleated RBC % (auto) Anion Gap 15 Estim Creat Clear Calc 155.3 Estimated GFR > 60 Random Glucose 99 Calcium 8.9 C-Reactive Protein Stool Leukocytes, Qual Microbiology Microbiology Results: Microbiology 11/22/21 09:41 Stool Culture - Preliminary Stool Normal so far. Assessment and Plan (1) Ileus: Status: Acute Plan 56yo M with morbid obesity, BRICE on CPAP presenting with 2 days of nausea, vomiting, and watery diarrhea with fever and found to have ileus # ileus - continue IV fluids, trial of clear liquids - likely secondary to gastroenteritis; follow stool cultures; prn loperamide. Cdiff + stool WBCs negative # BRICE - CPAP at night # HTN - lisinopril # anxiety - prn lorazepam # morbid obesity - outpt bariatrics eval to be considered # VTE ppx - LMWH In my clinical judgment, the patient requires continued hospitalization for the following reasons: IV fluids ileus Quality Stroke Does the patient have a stroke diagnosis?: No VTE Prior VTE?: No VTE Risk Level:: Medical - moderate - high VTE Device Contraindication: N/A - Device Ordered VTE Drug Contraindication: N/A - Med Ordered
[2021-11-23 16:00] VITALS: BP 127/73; PULSE 75; RESP 18; TEMP 36.3; O2SAT 96
[2021-11-23] MEDS: Simethicone 80 MG TAB.CHEW PO (17:01)
[2021-11-23] MEDS: Loperamide HCl 2 MG CAPSULE PO (17:01)
[2021-11-23] MEDS: lisinopriL 10 MG TABLET PO (20:38)
[2021-11-23] MEDS: Aspirin Enteric Coated 81 MG TABLET.DR PO (20:38)
[2021-11-24 00:21] VITALS: BP 107/55; PULSE 73; RESP 18; TEMP 36.8; O2SAT 95
[2021-11-24] MEDS: Lactated Ringers 1,000 ML 125 ML IVCONT ×2 (05:57→16:07)
[2021-11-24 06:29] LABS: Hematocrit 37.6 % (42.0-52.0); Hemoglobin 12.3 g/dl (14.0-18.0); Mean Corpuscular HGB Conc 32.7 g/dl (31.0-36.0); Mean Corpuscular Hemoglobin 25.8 pg (27.0-33.0); Mean Corpuscular Volume 78.8 fL (80.0-98.0); Mean Platelet Volume 8.9 fL (9.4-12.4); Platelet Count 233 X10*3/uL (160-400); Red Blood Count 4.77 X10*6/uL (4.60-5.80); White Blood Count 6.8 X10*3/uL (4.8-10.8)
[2021-11-24 06:52] LABS: Anion Gap 12 (12-20); Blood Urea Nitrogen 8 mg/dL (9-16); C Reactive Protein 2.92 mg/dL (< or = 0.50); Calcium 8.5 mg/dL (8.4-10.2); Carbon Dioxide 22 mmol/L (22-29); Chloride 107 mmol/L (96-108); Creatinine Clr Calc Pharmacy 167.6; Estimated Glomerular Filt Rate > 60; Glucose Random 100 mg/dL (60-115); Potassium 3.3 mmol/L (3.3-5.1); Sodium 138 mmol/L (135-145)
[2021-11-24 07:34] VITALS: BP 122/65; PULSE 79; RESP 18; TEMP 36.5; O2SAT 95
--- NOTE | 2021-11-24 11:42 | HO.PM.IMPN ---
Subjective Subjective Date of Service: 11/24/21 Interval History: Tolerating clear liquids but had lots of diarrhea last night. Improved with Imodium. Multiple family members have similar GI illness. Review of Systems Review of Systems: Yes all other systems are reviewed and are negative Physical Exam Vital Signs: Vital Signs: Last Vital Signs Temp 97.7 F 11/24/21 07:34 Pulse 79 11/24/21 07:34 Resp 18 11/24/21 07:34 BP 122/65 11/24/21 07:34 Pulse Ox 95 11/24/21 07:34 BMI result Body Mass Index 42.3 Gen: in no acute distress HEENT: sclera anicteric, moist mucus membranes Neck: supple Lungs: clear to auscultation bilaterally Heart: regular rate and rhythm, no murmurs Abd: soft, obese, nontender, active bowel sounds throughout Ext: no edema Skin: warm/well-perfused Neuro: alert and oriented x3, no focal findings Psych: appropriate affect Objective Data Active Medications Acetaminophen (Acetaminophen 325 Mg Tablet) 650 mg PO Q6H PRN PRN Reason: Pain, Mild (Pain Scale 1-3) Albuterol Sulfate (Albuterol Sulfate 90 Mcg 8 Gm Inhaler) 2 puff INHALE Q6H PRN PRN Reason: Wheezing Aspirin (Aspirin Enteric Coated 81 Mg Tablet.Dr) 81 mg PO BEDTIME [facility] Last Admin: 11/23/21 20:38 Dose: 81 mg Documented by: DEVI Enoxaparin Sodium (Enoxaparin Sodium 40 Mg/0.4 Ml Syringe) 40 mg SUBCUT Q24H [facility] Last Admin: 11/23/21 14:42 Dose: Not Given Documented by: RADHA Non-Admin Reason: Patient Refused Lactated Ringer's (Lr) 1,000 mls @ 125 mls/hr IVCONT .Q8H [facility] Last Admin: 11/24/21 05:57 Dose: 125 mls/hr Documented by: DEVI Lisinopril (Lisinopril 10 Mg Tablet) 10 mg PO BEDTIME [facility]; Protocol Last Admin: 11/23/21 20:38 Dose: 10 mg Documented by: DEVI Loperamide HCl (Loperamide Hcl 2 Mg Capsule) 2 mg PO Q4H PRN PRN Reason: diarrhea Last Admin: 11/23/21 17:01 Dose: 2 mg Documented by: RADHA Lorazepam (Lorazepam 0.5 Mg Tablet) 0.5 mg PO DAILY PRN PRN Reason: Anxiety Ondansetron HCl (Ondansetron Hcl 4 Mg/2 Ml Vial) 4 mg IVPUSH Q8H PRN PRN Reason: Nausea and Vomiting Pharmacy Consult (Consult Rx Perform Med Rec) 1 each MISCELLANE ONCE PRN PRN Reason: Consult order Simethicone (Simethicone 80 Mg Tab.Chew) 80 mg PO QIDWMHS PRN PRN Reason: Gas Last Admin: 11/23/21 17:01 Dose: 80 mg Documented by: RADHA Sodium Chloride (0.9 % Sodium Chloride Flush 3 Ml Syringe) 3 ml IVFLUSH QSHIFT [facility] Last Admin: 11/24/21 08:11 Dose: Not Given Documented by: LUIS Non-Admin Reason: IV Running Labs CBC & Chem 7: 11/24/21 05:55 11/24/21 05:55 Labs: Laboratory Results - last 24 hr 11/24/21 11/24/21 05:55 05:55 MCV 78.8 L MCH 25.8 L MCHC 32.7 RDW 13.0 Plt Count 233 MPV 8.9 L Absolute Nucleated RBC 0.000 Nucleated RBC % (auto) 0.0 Anion Gap 12 Estim Creat Clear Calc 167.6 Estimated GFR > 60 Random Glucose 100 Calcium 8.5 C-Reactive Protein 2.92 H Microbiology Microbiology Results: Microbiology 11/22/21 09:41 Stool Culture - Preliminary Stool Normal so far. Assessment and Plan (1) Ileus: Status: Acute Plan 56yo M with morbid obesity, BRICE on CPAP presenting with 2 days of nausea, vomiting, and watery diarrhea with fever and found to have ileus # ileus - continue IV fluids + clear liquid diet - likely secondary to gastroenteritis; stool studies normal to date and likely viral in nature; prn loperamide. # BRICE - CPAP at night # HTN - lisinopril # anxiety - prn lorazepam # morbid obesity - outpt bariatrics eval to be considered # VTE ppx - LMWH In my clinical judgment, the patient requires continued hospitalization for the following reasons: IV fluids + ileus Quality Stroke Does the patient have a stroke diagnosis?: No VTE Prior VTE?: No VTE Risk Level:: Medical - moderate - high VTE Device Contraindication: N/A - Device Ordered VTE Drug Contraindication: N/A - Med Ordered
[2021-11-24 16:00] VITALS: BP 119/58; PULSE 77; RESP 18; TEMP 36.6; O2SAT 96
[2021-11-24 19:40] VITALS: BP 119/66; PULSE 76; RESP 18; TEMP 36.9; O2SAT 98
[2021-11-24] MEDS: 0.9 % Sodium Chloride Flush 3 ML SYRINGE IVFLUSH (22:34)
[2021-11-24] MEDS: lisinopriL 10 MG TABLET PO (22:34)
[2021-11-24] MEDS: Aspirin Enteric Coated 81 MG TABLET.DR PO (22:34)
[2021-11-25] VITALS: BP 131/65; PULSE 85; RESP 16; TEMP 36.7; O2SAT 96
[2021-11-25 00:26] VITALS: BP 119/62; PULSE 79; RESP 14; TEMP 36.7; O2SAT 96
[2021-11-25 07:13] VITALS: BP 119/69; PULSE 63; RESP 18; TEMP 36; O2SAT 97
[2021-11-25] MEDS: Lactated Ringers 1,000 ML 125 ML IVCONT (08:26)
--- NOTE | 2021-11-25 13:01 | MHC.CM.PN ---
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
--- NOTE | 2021-11-25 13:44 | PM.DS ---
DS: Providers Provider Date of Service: 11/25/21 Date of admission: 11/22/21 13:26 Date of discharge: 11/25/21 Primary care physician: Roberto Dominique MD DS: Diagnosis Discharge Diagnosis (1) Ileus: Status: Acute (2) Gastroenteritis: Status: Acute (3) Morbid obesity: Status: Acute DS: Summary Hospital Course Hospital Course: from my admission History and Physical, 11/22/21: 56 year-old male with BRICE on BiPAP, morbid obesity, HTN presenting with 2 days of fever up to 102F with chills, nausea, vomiting, and watery diarrhea along with generalized abodminal cramping.? Feels lightheaded from all of the vomiting.? No hematemesis, hematochezia, dysuria, or hematuria.? No recent high overseas travel, camping, or high-risk food exposures.? No sick contacts but he liesv alone.? No recent antibiotic usage.? In the ED, stool for Clostridium difficile was negative and fecal leukocytes were negative.? CT scan of the abdomen and pelvis showed ileus and mesenteric lymphadenopathy. This 56yo M with morbid obesity and BRICE on CPAP presenting with 2 days of nausea, vomiting, and watery diarrhea with fever was found to have ileus. He was admitted to the medical/surgical floor with bowel rest and IV fluids. Ileus resolved and patient developed watery diarrhea. Multiple family members have developed similar symptoms. His diet was advanced gradually and his diarrhea resolved. Stool studies were negative for bacterial pathogens; likely had viral gastroenteritis. He was discharged with instructions to follow-up with his primary care doctor within 1-2 weeks. Time Spent with Patient Time attestation: Total time spent providing and/or coordinating discharge services: Discharge coordination time: Greater than 30 minutes Quality: Stroke Does the patient have a stroke diagnosis?: No Physical Exam Vital Signs: Vital Signs: Last Vital Signs Temp 96.8 F 11/25/21 07:13 Pulse 63 11/25/21 07:13 Resp 18 11/25/21 07:13 BP 119/69 11/25/21 07:13 Pulse Ox 97 11/25/21 07:13 BMI result Body Mass Index 42.3 Gen: in no acute distress HEENT: sclera anicteric, moist mucus membranes Neck: supple Lungs: clear to auscultation bilaterally Heart: regular rate and rhythm, no murmurs Abd: soft, obese, nontender, active bowel sounds throughout Ext: no edema Skin: warm/well-perfused Neuro: alert and oriented x3, no focal findings Psych: appropriate affect DS: Data Data Completed and Pending Completed studies during hospitalization [Text1]: Laboratory Results WBC 6.8 X10*3/uL (4.8-10.8) 11/24/21 05:55 RBC 4.77 X10*6/uL (4.60-5.80) 11/24/21 05:55 Hgb 12.3 g/dl (14.0-18.0) L 11/24/21 05:55 Hct 37.6 % (42.0-52.0) L 11/24/21 05:55 MCV 78.8 fL (80.0-98.0) L 11/24/21 05:55 MCH 25.8 pg (27.0-33.0) L 11/24/21 05:55 MCHC 32.7 g/dl (31.0-36.0) 11/24/21 05:55 RDW 13.0 % (11.0-16.0) 11/24/21 05:55 Plt Count 233 X10*3/uL (160-400) 11/24/21 05:55 MPV 8.9 fL (9.4-12.4) L 11/24/21 05:55 Immature Gran % (Auto) 0.7 % (0.0-0.4) H 11/23/21 05:17 Neut % (Auto) 54.0 % (45-73) 11/23/21 05:17 Lymph % (Auto) 29.6 % (20-40) 11/23/21 05:17 [place] % (Auto) 12.6 % (2-11) H 11/23/21 05:17 Eos % (Auto) 2.6 % (0-4) 11/23/21 05:17 Baso % (Auto) 0.5 % (0-2) 11/23/21 05:17 Lymph # (Auto) 2.2 X10*3/uL (1.2-4.9) 11/23/21 05:17 [place] # (Auto) 0.9 X10*3/uL (0.1-1.2) 11/23/21 05:17 Eos # (Auto) 0.2 X10*3/uL (0.0-0.4) 11/23/21 05:17 Baso # (Auto) 0.0 X10*3/uL (0.0-0.2) 11/23/21 05:17 Abs Immat Gran (auto) 0.05 X10*3/uL (0.00-0.03) H 11/23/21 05:17 Absolute Neuts (auto) 4.0 x10*3/uL (2.0-8.3) 11/23/21 05:17 Absolute Nucleated RBC 0.000 X10*3/uL (0.0-0.012) 11/24/21 05:55 Nucleated RBC % (auto) 0.0 /100WBC (0.0-0.2) 11/24/21 05:55 Sodium 138 mmol/L (135-145) 11/24/21 05:55 Potassium 3.3 mmol/L (3.3-5.1) 11/24/21 05:55 Chloride 107 mmol/L (96-108) 11/24/21 05:55 Carbon Dioxide 22 mmol/L (22-29) 11/24/21 05:55 Anion Gap 12 (12-20) 11/24/21 05:55 BUN 8 mg/dL (9-16) L 11/24/21 05:55 Creatinine 0.76 mg/dL (0.5-1.4) 11/24/21 05:55 Estim Creat Clear Calc 167.6 11/24/21 05:55 Estimated GFR > 60 11/24/21 05:55 Random Glucose 100 mg/dL (60-115) 11/24/21 05:55 Calcium 8.5 mg/dL (8.4-10.2) 11/24/21 05:55 Total Bilirubin 0.7 mg/dL (0.0-1.0) 11/22/21 09:41 AST 18 U/L (5-37) 11/22/21 09:41 ALT 25 U/L (0-40) 11/22/21 09:41 Alkaline Phosphatase 64 U/L (39-117) 11/22/21 09:41 Troponin I High Sens < 3.5 ng/L (<3.5-35.0) 11/22/21 09:41 C-Reactive Protein 2.92 mg/dL (< or = 0.50) H 11/24/21 05:55 Total Protein 7.5 g/dL (6.5-8.0) 11/22/21 09:41 Albumin 4.3 g/dL (3.5-5.0) 11/22/21 09:41 Lipase 14 U/L (8-78) 11/22/21 09:41 Urine Color YELLOW 11/22/21 09:41 Urine Appearance CLEAR 11/22/21 09:41 Urine pH 6.0 (5.0-8.0) 11/22/21 09:41 Ur Specific [place] >= 1.030 (1.005-1.025) H 11/22/21 09:41 Urine Protein TRACE MG/DL (NEG-TRACE) 11/22/21 09:41 Urine Glucose (UA) NEG MG/DL (NEG) 11/22/21 09:41 Urine Ketones NEG MG/DL (NEG) 11/22/21 09:41 Urine Blood TRACE (NEG) 11/22/21 09:41 Urine Nitrite NEG (NEG) 11/22/21 09:41 Ur Leukocyte Esterase NEG (NEG) 11/22/21 09:41 Urine RBC 0-2 /HPF (0) 11/22/21 09:41 Urine WBC 0-2 /HPF (0-4) 11/22/21 09:41 Ur Squamous Epith Cells TRACE /LPF 11/22/21 09:41 Amorphous Sediment 1+ /LPF 11/22/21 09:41 Urine Bacteria NONE /LPF 11/22/21 09:41 Urine Mucus 1+ /LPF 11/22/21 09:41 Stool Leukocytes, Qual NEGATIVE (NEGATIVE) 11/22/21 09:42 C. difficile Tox B Gene NEGATIVE (Negative) 11/22/21 09:42 COVID-19 (ANJALI) Negative (Negative) 11/22/21 09:41 COVID-19 Clin Com See Note 11/22/21 09:41 Influenza Type A (ABDON) Negative (Negative) 11/22/21 09:41 Influenza Type B (ABDON) Negative (Negative) 11/22/21 09:41 Influenza A & B Note See Note 11/22/21 09:41 Impressions Abdomen Ultrasound 11/22/21 09:31 IMPRESSION: Very limited exam. Slightly enlarged spleen. Abdomen/Pelvis CT 11/22/21 10:40 IMPRESSION: Multiple dilated small bowel loops likely jejunum and proximal ileal loops. The distal ileal loops and the terminal ileum appears normal. There is no transition zone or any etiology for mild dilatation. Small shotty mesenteric lymph nodes. No mesenteric fat stranding. Rest of the abdomen and pelvis CT is unremarkable. Fleischner guidelines were followed. Discharge Plan Discharge Patient Disposition: Home, Self-Care Discharge Diagnosis: ileus, gastroenteritis Referrals: Roberto Dominique MD [Primary Care Provider] - 1 Week Discharge Medications: New simethicone [Gas Relief (simethicone)] 80 mg Tablet,Chewable 80 mg PO QIDWMHS PRN (Reason: Gas) Qty: 30 0RF loperamide 2 mg Capsule 2 mg PO Q4H PRN (Reason: diarrhea) Qty: 30 0RF Continued albuterol sulfate 90 mcg/actuation HFA aerosol inhaler 2 puff PO Q6H PRN (Reason: Wheezing) 0RF lisinopril 10 mg tablet 10 mg PO BEDTIME 0RF lorazepam 0.5 mg tablet 0.5 mg PO DAILY PRN (Reason: Anxiety) 0RF aspirin 81 mg tablet,delayed release (DR/EC) 81 mg PO BEDTIME 0RF Discharge Orders: Discharge Order (Routine); Ordered 11/25/21 Ordered By: Felix Oliver Diet: advance to usual diet and other Activity on Discharge: As tolerated Stand Alone Forms: Patient Portal Discharge page Care Plan Goals: recovery from GI illness Health Concerns: ileus, gastroenteritis Plan of Treatment: as-needed lopreamide for diarrhea as-needed simethicone for gas BRAT diet, advance as tolerated follow up with Primary Care in 1-2 weeks Assessment: see discharge summary Patient Instructions: Gastroenteritis (ED)
== END 2021-11-25 15:27 | disposition home or self-care (01) | DRG 249 ==
LOC: HO.ED 12:05 → HO.EDOVER 13:30 → HO.S3 15:24
PROVIDERS: Physician Assistant Medical; Admitting Provider Family Medicine; Emergency Provider Emergency Medicine; PCP Internal Medicine; Visit Provider Family Medicine
DX: K52.9 Noninfective gastroenteritis and colitis, unspecified (principal); K56.7 Ileus, unspecified; E66.01 Morbid (severe) obesity due to excess calories; I10 Essential (primary) hypertension; F41.9 Anxiety disorder, unspecified; E86.0 Dehydration; G47.33 Obstructive sleep apnea (adult) (pediatric); Z99.89 Dependence on other enabling machines and devices; Z68.41 Body mass index [BMI] 40.0-44.9, adult; Z20.822 Contact with and (suspected) exposure to COVID-19; Z88.0 Allergy status to penicillin; Z79.82 Long term (current) use of aspirin; Z79.899 Other long term (current) drug therapy
CPT/HCPCS: 36415; 74177; 76700; 80048; 80053; 81001; 83690; 84484; 85025; 85027; 86140; 87045; 87046; 87493; 87502; 87635; 89055; 93005; 94660; 96374; 96375; 99285; 99291; J1650; Q9967

== ENCOUNTER → 2022-02-25 10:31 | Outpatient (BNVA) | payer OTHER, SELFPAY | PROVIDERS: PCP Internal Medicine; Visit Provider Hospitalist | DX: G47.33 Obstructive sleep apnea (adult) (pediatric) (principal); J98.4 Other disorders of lung; R09.02 Hypoxemia; R06.00 Dyspnea, unspecified | CPT/HCPCS: 94618 ==

== ENCOUNTER 2022-04-28 07:17 | Outpatient (REF) | payer OTHER, SELFPAY ==
--- NOTE | 2022-04-28 15:28 | PFT_ITS ---
Forced vital capacity 78%, FEV1 94%. FEV1/FVC ratio is 92. FEF 25/75, 195%. MVV 82%. Total lung capacity 76% and residual volume 65%. Diffusion capacity 82%. Bronchodilator challenge not performed because the patient declined to have the bronchodilator therapy being afraid of resulting in tachycardia. CONCLUSION: On the basis of these results, there is indication of a mild degree of restrictive disorder. There is no evidence of obstructive airway disorder. Clinical correlation recommended. Sonia Barreto MD MSRoman/MODL / [id number]
== END 2022-04-28 07:18 | disposition home or self-care (01) ==
LOC: HO.RESP 07:17
PROVIDERS: PCP Internal Medicine; Visit Provider Hospitalist
DX: R09.02 Hypoxemia (principal); J98.4 Other disorders of lung
CPT/HCPCS: 94060; 94727; 94729

== ENCOUNTER 2022-05-19 06:58 | Outpatient (REF) | payer OTHER, SELFPAY ==
--- NOTE | ~2022-05-19 | CT_ITS ---
EXAMINATION: CT CHEST WITHOUT CONTRAST CLINICAL INFORMATION: Other disorders of lung. COMPARISON: None TECHNIQUE: Multidetector volumetric CT imaging of the chest was done. Axial MIP volume rendering provided. Sagittal and coronal reformatted images were obtained. This CT examination was performed using dose optimization techniques as appropriate, variously including the following: *Automated exposure control *Adjustment of mA and/or kV according to patient size (this includes techniques or standardized protocols for targeted exams where dose is matched to indication/reason for exam; i.e. extremities or head) *Use of iterative reconstruction technique DLP: 740 mGy-cm FINDINGS: CHIEF OPHTHALMIC TECHNICIAN: Unremarkable chest exam. LUNGS: The lungs are well-expanded and clear of acute pneumonic process. There is a 2 mm nodule right middle lobe nodular thickening along the right minor fissure axial image 23/3 likely lymph node. There is a 1 mm subpleural nodule in the lingula axial image 262/4. MEDIASTINUM: The thyroid lobes are symmetrical and normal. The central trachea and bronchi are widely patent. Heart size and the great vessels are normal caliber. There is no pericardial effusion. No abnormal size mediastinal or hilar lymph nodes seen. PLEURA: There is no pleural effusion. No pleural mass or thickening. AXILLA: No lymphadenopathy. UPPER ABDOMEN: Visualized liver, spleen, pancreas and bilateral adrenal glands unremarkable. OSSEOUS STRUCTURES: There is moderate ventral bridging osteophytes. No aggressive lytic or sclerotic process seen. CT/CT chest wo IV con IMPRESSION: 1. Punctate insignificant nodules measuring 2 mm and less. The right minor fissure nodule is likely a lymph node. 2. No acute process seen. Fleischner guidelines were followed.
== END 2022-05-19 06:59 | disposition home or self-care (01) ==
LOC: HO.CT 06:58
PROVIDERS: PCP Internal Medicine; Visit Provider Hospitalist
DX: J98.4 Other disorders of lung (principal)
CPT/HCPCS: 71250

== ENCOUNTER 2023-03-25 07:18 | Outpatient (REF) | payer OTHER, SELFPAY ==
[2023-03-25 12:17] LABS: T4 Thyroxine 6.4 ug/dL (4.5-12.0); Thyroid Stimulating Hormone 3.38 uIU/mL (0.32-4.0)
[2023-03-25 12:28] LABS: Folate 10.3 ng/mL (> or = 4.0); Vitamin B12 456 pg/mL (200-900)
== END 2023-03-25 07:19 | disposition home or self-care (01) ==
LOC: HO.HMGCLDS 07:18
PROVIDERS: PCP Internal Medicine; Visit Provider Psychiatry & Neurology Neurology
DX: G31.84 Mild cognitive impairment of uncertain or unknown etiology (principal)
CPT/HCPCS: 36415; 82607; 82746; 84436; 84443

== ENCOUNTER → 2023-04-15 09:05 | Outpatient (REF) | payer OTHER, SELFPAY | LOC: HO.SL 09:05 | PROVIDERS: PCP Internal Medicine; Visit Provider Hospitalist | DX: G47.33 Obstructive sleep apnea (adult) (pediatric) (principal) | CPT/HCPCS: 95811 ==

== ENCOUNTER → 2023-04-26 20:05 | Outpatient (BNV) | payer OTHER, SELFPAY | PROVIDERS: PCP Internal Medicine; Visit Provider Internal Medicine | DX: G47.33 Obstructive sleep apnea (adult) (pediatric) (principal) | CPT/HCPCS: 95811 ==

== ENCOUNTER 2023-07-06 07:16 | Outpatient (REF) | payer OTHER, SELFPAY | END 2023-07-06 07:17 | disposition home or self-care (01) | LOC: HO.CT 07:16 | PROVIDERS: PCP Internal Medicine; Visit Provider Hospitalist | DX: R91.1 Solitary pulmonary nodule (principal) | CPT/HCPCS: 71250 ==

== ENCOUNTER 2023-07-27 09:50 | Outpatient (REF) | payer OTHER, SELFPAY ==
--- NOTE | ~2023-07-27 | CT_ITS ---
EXAMINATION: CT CHEST WITHOUT CONTRAST CLINICAL INFORMATION: Pulmonary nodule COMPARISON: CT chest from 05/19/2022 TECHNIQUE: Multidetector volumetric CT imaging of the chest was done. Axial MIP volume rendering provided. Sagittal and coronal reformatted images were obtained. This CT examination was performed using dose optimization techniques as appropriate, variously including the following: *Automated exposure control *Adjustment of mA and/or kV according to patient size (this includes techniques or standardized protocols for targeted exams where dose is matched to indication/reason for exam; i.e. extremities or head) *Use of iterative reconstruction technique DLP: 379 mGy-cm FINDINGS: LUNGS/PLEURA: Emphysematous changes. Stable 1 mm nodule along the right minor fissure (series 5, image 270). Previously identified 2 mm nodule right middle lobe is less conspicuous on current examination. Table 2 mm subpleural nodule lateral aspect of the left upper lobe (series 5, image 289). No new enlarged or suspicious pulmonary nodules or masses are noted. Central airways are patent. No pneumothorax. No large pleural effusion. MEDIASTINUM: Heart is not enlarged. No pericardial effusion. No coronary calcifications are noted. Aorta is nonaneurysmal. Main pulmonary artery is not enlarged. No enlarged lymph nodes per size criteria. Visualized portions of the thyroid are unremarkable. AXILLA: No lymphadenopathy. UPPER ABDOMEN: Spleen is enlarged measuring 15.4 cm. Fatty atrophy of the pancreas. OSSEOUS STRUCTURES: Multilevel degenerative changes of the thoracolumbar spine with anterior bridging osteophytes. CT/CT chest wo IV con IMPRESSION: 1. Redemonstration of bilateral pulmonary nodules the largest measuring up to 2 mm. No new enlarged or suspicious pulmonary nodules or masses are noted. 2. Spleen is enlarged measuring 15.4 cm.
== END 2023-07-27 09:51 | disposition home or self-care (01) ==
LOC: HO.CT 09:50
PROVIDERS: PCP Internal Medicine; Visit Provider Hospitalist
DX: R91.1 Solitary pulmonary nodule (principal)
CPT/HCPCS: 71250

== ENCOUNTER 2024-03-07 08:54 | Outpatient (AMB) | payer OTHER, SELFPAY ==
--- NOTE | 2024-03-07 09:03 | A.OFFVIS_ITS ---
Vital Signs 03/07/24 09:05 Height 6 ft 2 in Weight 280 lb BMI 35.9 BP 120/60 Blood Pressure Location Lt brachial Position Sitting Pulse 72 Pulse Source Pulse Oximeter Pulse Oximetry (%) 97 Oxygen Delivery Method Room Air Intake Visit Reasons: Obstructive sleep apnea Allergies Amoxicillin Allergy (Mild, Uncoded 03/07/24 09:07) Hives PCN Allergy (Mild, Uncoded 03/07/24 09:07) Hives HPI Comments Details: The patient is a 59-year-old gentleman known hypertension in addition to obstructive sleep apnea and obesity. He has been using BiPAP for his obstructive sleep apnea for many years. The therapy has been affecting beneficial. He does uses BiPAP for more than 4 hours a night. Sometimes he feels like he is not getting enough pressure from his current BiPAP. He has had this machine now for about 10 years. The machine is not working correctly at this time. Difficult to get download from the machine at this time. Will request a replacement through his current DME company, [employer]. The patient reports that he dyspnea [id number]. Specially when going up a flight of stairs. He has also noticed that his pulse oximeter has been on the low side down to 93%. He did have a chest x-ray recently in March 2020 at [facility] when he presented with chest pains. The chest x-ray is otherwise clear. Did have lower expansion of the lungs likely from his obesity. 07/02/2020 the patient is here for pulmonary follow-up visit. He has multiple concern specially with sleep. He does have a up washings been monitoring his heart rate and pulse ox. He has been noticing low pulse ox of 90. In addition to that his heart rate has been dropped into the 50s and 60s. I reassured him that this is all related to his underlying be sleep in good sleep hygiene. We did download the BiPAP. His AHI down to 0.2. He started volumes are stable his minute ventilation is also stable and his central sleep apnea index is low as well. Does complaint of dyspnea on exertion mild in severity. We did have him get a pulmonary function studies demonstrating a mild restrictive ventilatory defect consistent with his body habitus. He is going to start working on weight loss. In the meantime will going to continue the BiPAP at current settings. View of the hypoxia at having doing overnight oximetry. 02/25/2022 the patient is here for a pulmonary follow-up visit. Since we last spoke the patient has been concerned about his oxygen levels. He has been noticing that when he monitors his oxygen at nighttime his oxygen is may drop to the 70s and 80s. He is wondering if he needs to use oxygen with the BiPAP. In addition to that he is describing increasing dyspnea on exertion. Sometimes when he checks his oxygen with activity may drop to 92%. His shortness of breath is moderate severity. It does improve once he is resting. He recently did have a cardiac evaluation per the patient. Both an echocardiogram and stress test. I will request those results from his primary care doctor's office. Recently the patient also underwent a chest x-ray at [facility] and I will request that as well. The patient also developed severe norovirus with significant diarrhea and dehydration. He was briefly admitted to the [facility]. Here he did undergo a CT scan of the abdomen and pe lvis. We did visualize the lung windows and his lung parenchyma appears to be healthy. His pulmonary trunk from pulmonary artery also appeared to be normal size which is reassuring regarding the risk of pulmonary hypertension. During the visit we did go for 6 minutes walk test. The patient did ambulate well. He had a dyspnea score of 3/10 and his oxygen did decrease down to 93%. in regards to the BiPAP we did download the data. It appears that his AHI is still very good around 1.6. However he is having more central apneas up to 3 events an hour. Explained to him that 1 possibility is that we are over treating his obstructive sleep apnea and therefore blowing out too much CO2 and therefore causing central apneic episodes. Therefore I did decrease his pressures from 12/8 to 11/7. He will trial this pressure and also we will perform a formal overnight oximetry. If the patient does have significant hypoxia while sleeping then he will require titration study to further figure out if he has a complex sleep apnea that requires a different modalities such as ASV versus IVAP. 04/28/2022 the patient is here for a pulmonary follow-up visit. He is very concerned about his lung health. Apparently patient did have a CT scan of the abdomen and pelvis which demonstrated a cystic lesion. The patient does have a significant family history of lung cancer. His dad had lung cancer and . Then, his history ended up with lung cancer and also bladder cancer that ultimately metastasized. More recently his brother also was diagnosed with lung cancer was just operated on and had surgery with curative intent. He still does not know the pathology or if any molecular markers were done. In the meantime the patient does have shortness of breath and also has a chronic cough. He did undergo pulmonary function studies demonstrated restrictive lung disease. He did have a chest x-ray which was not helpful. And again, his CT scan of the abdomen demonstrated a cystic lesion. At this time the best thing to do will be to do a CT scan to further address his ongoing symptoms and also to move follow-up the abnormal finding on the CT scan of the abdomen and potentially evaluate for other abnormalities. He continues use the BiPAP. He was supposed to undergo an overnight oximetry while on the BiPAP on room air. However, he never got a call. Will go ahead and send the request to a different [employer] company to see if we can have that done as soon as possible. 08/11/2022 the patient is here for a pulmonary follow-up visit. The patient overall has been doing well. He has been using his BiPAP every night. He did get a different mask and that he is very comfortable with although he does not have the name all the company that makes it. He is going to look into it and let me know via portal or call. He does use [employer]. Once I know the mask that works for him I will requested from his [employer] company. His current settings are 11/7. We had decreased during the last visit. Sometimes he feels like he is having some vivid dreams in his like he is not getting enough pressure. Although his current apnea-hypopnea index is actually 0.3. T his is reassuring that he really does not need too much pressure changes. Therefore will increase slightly to 12/8. He will try this in the let me now if additional changes are required. We did also review his CT scan of the chest. No significant findings. Does have a tiny 2 mm pulmonary nodule as well as the cystic lesion. She is concerned with a family history of significant cancers. I have reassured him that this is nothing to be concerned about and that will continue to follow closely with another CT scan in a year's time. The patient will follow-up after the CT scan. 03/07/2024 the patient is here for a pulmonary follow-up visit. He has a significant amount of weight loss. He is working closely with his primary care and other specialists because of some GI in renal issues. These seem to be stabilizing. He has been struggling with BiPAP. Still having episodes of shortness breath and tachypnea while sleeping. We did download the BiPAP. It seems like his AHI is elevated between 6-7 episodes per hour. His current settings of 12/8. This set up spontaneous. I switched her over to auto BiPAP in left settings as the fall. Will have him try the auto BiPAP for week and then he will call to further adjusted so I can download the data. Sounds like he needs more pressure. If he does not tolerate the auto BiPAP that I can always switching to regular spontaneous BiPAP and increase the settings. If he continues to be symptomatic also consider getting a blood gas to assess for hypercarbia or for metabolic acidosis to try explain the tachypnea. The patient is also concerned about the pulmonary nodules. His last CT scan was back in the fall 2022. He has numerous subcentimeter pulmonary nodules. He does have a positive family history of lung cancer both his that his brother and he is very concerned about the possibility of having cancer. Therefore will have him get a repeat CT scan will follow-up. The patient also again will call once she gets situated with the new settings on the BiPAP she can download the data in review it. REPLACED BY [facility] Medical History (Updated 03/07/24 @ 21:29 by Jeet Thompson MD) Pulmonary nodule Lung cyst Dyspnea Chronic restrictive lung disease BRICE treated with BiPAP Family History (Updated 11/22/21 @ 13:49 by Felix Oliver MD) Brother Diabetes Social History (Updated 02/25/22 @ 10:41 by MANJIT Perdue) Household Members: None Housing: Apartment Do you presently have visiting nurse or other home services: No Alcohol intake: never Patient Tobacco Use Status: Former Tobacco user Tobacco use type: Cigarette Years Smoked: 4 Years Advance Directives Date on File: 11/22/21 service: No Current occupational status: employed Review of Systems Const Reports difficulty sleeping, Denies night sweats and Reports weight loss ENT Denies change in voice, Denies lip swelling, Denies mouth pain, Reports nasal congestion, Reports nasal discharge and Denies tongue swelling Card Denies chest pain, Reports dyspnea and Reports dyspnea on exertion Resp Reports cough, Reports dyspnea and Reports dyspnea on exertion GI Denies abdominal pain Musc Denies no additional complaints Neuro Denies Neuro-related abnormal movements Psych Denies no additional complaints Geovany/Lymph Denies easy bleeding and Denies lymphadenopathy Aller/Immun Denies lip swelling and Denies tongue swelling Physical Exam Vital Signs: Last Vital Signs Pulse 72 03/07/24 09:05 BP 120/60 03/07/24 09:05 Pulse Ox 97 03/07/24 09:05 Oxygen Delivery Method Room Air 03/07/24 09:05 BMI result Body Mass Index 35.9 Const General: alert HEENT General nose exam: Abnormal external nose present and Nasal discharge present Eyes Pupils: Equal, round and reactive pupils present Neck Neck: Yes normal visual inspection, Yes full ROM and Yes no lymphadenopathy Chest Chest palpation & inspection: normal inspection of the chest Resp Auscultation: no rales, no rhonchi, no wheezes and diminished lung sounds Cardio Rate: regular rate Rhythm: regular rhythm Heart sounds: S1 normal heart sound present and S2 normal heart sound present GI Palpation (GI): Soft to palpation and nontender Auscultation: normal bowel sounds General: Yes no CVA tenderness Back/Spine/Pelvis Back: no CVA tenderness Skin General skin exam: rashes and/or lesions noted Neuro Cranial nerves: Yes Equal, round and reactive pupils present Assessment & Plan Assessment & Plan (1) BRICE treated with BiPAP: Code(s): G47.33 - Obstructive sleep apnea (adult) (pediatric) Category: Medical Plan: continue BIPAP 08/14 (2) Chronic restrictive lung disease: Code(s): J98.4 - Other disorders of lung Category: Medical Plan: Weight management (3) Dyspnea: Comment: Deconditioning Code(s): R06.00 - Dyspnea, unspecified Category: Medical Qualifiers: Dyspnea type: shortness of breath Qualified Code(s): R06.02 - Shortness of breath Plan: Exercise program (4) Hypoxia: Code(s): R09.02 - Hypoxemia Category: Medical Plan continue BiPAP changed 08/14-> Auto VPAP. Pt will call in 1-2 weeks with an update. DME, [employer] consider Blood gas repeat CT chest 08/2024 +FHx lung cancer (brother, father) Trazodone for sleep follow-up in [address]: [address] chest wo IV con 08/08/24 R91.1 - Solitary pulmonary nodule Coding Level of Care Code Est Pt Level 4 (39983) Diagnoses BRICE treated with BiPAP G47.33 Chronic restrictive lung disease J98.4 Shortness of breath R06.02 Dyspnea type: shortness of breath Hypoxia R09.02 Time Spent (min) 17
[2024-03-07 09:05] VITALS: BP 120/60; PULSE 72; O2SAT 97; BMI 35.9
== END 2024-03-07 09:33 | disposition home or self-care (01) ==
PROVIDERS: PCP Internal Medicine; Visit Provider Hospitalist
DX: G47.33 Obstructive sleep apnea (adult) (pediatric) (principal); J98.4 Other disorders of lung; R06.02 Shortness of breath; R09.02 Hypoxemia
CPT/HCPCS: 99214

== ENCOUNTER → 2024-03-07 08:54 | Outpatient (BNVA) | payer OTHER, SELFPAY | PROVIDERS: PCP Internal Medicine; Visit Provider Hospitalist ==

== ENCOUNTER 2024-08-01 15:45 | Outpatient (REF) | payer OTHER, SELFPAY | END 2024-08-01 15:46 | disposition home or self-care (01) | LOC: HO.CT 15:45 | PROVIDERS: PCP Internal Medicine; Visit Provider Hospitalist | DX: R91.1 Solitary pulmonary nodule (principal) | CPT/HCPCS: 71250 ==

== ENCOUNTER → 2024-08-01 15:46 | Outpatient (BNV) | payer OTHER, SELFPAY | PROVIDERS: PCP Internal Medicine; Visit Provider Radiology Diagnostic Radiology | DX: J43.9 Emphysema, unspecified (principal); R91.1 Solitary pulmonary nodule | CPT/HCPCS: 71250 ==

== ENCOUNTER 2024-09-12 08:58 | Outpatient (AMB) | payer OTHER, SELFPAY ==
--- NOTE | 2024-09-12 08:59 | A.OFFVIS_ITS ---
Vital Signs 09/12/24 09:01 Height 6 ft 2 in Weight 302 lb 0.533 oz BMI 38.8 BP 110/74 Blood Pressure Location Rt brachial Position Sitting Pulse 65 Pulse Source Pulse Oximeter Pulse Oximetry (%) 98 Oxygen Delivery Method Room Air Intake Visit Reasons: Obstructive sleep apnea Allergies Amoxicillin Allergy (Mild, Uncoded 09/12/24 09:03) Hives PCN Allergy (Mild, Uncoded 09/12/24 09:03) Hives HPI Comments Details: The patient is a 59-year-old gentleman known hypertension in addition to obstructive sleep apnea and obesity. He has been using BiPAP for his obstructive sleep apnea for many years. The therapy has been affecting beneficial. He does uses BiPAP for more than 4 hours a night. Sometimes he feels like he is not getting enough pressure from his current BiPAP. He has had this machine now for about 10 years. The machine is not working correctly at this time. Difficult to get download from the machine at this time. Will request a replacement through his current DME company, [employer]. The patient reports that he dyspnea [id number]. Specially when going up a flight of stairs. He has also noticed that his pulse oximeter has been on the low side down to 93%. He did have a chest x-ray recently in March 2020 at [facility] when he presented with chest pains. The chest x-ray is otherwise clear. Did have lower expansion of the lungs likely from his obesity. 07/02/2020 the patient is here for pulmonary follow-up visit. He has multiple concern specially with sleep. He does have a up washings been monitoring his heart rate and pulse ox. He has been noticing low pulse ox of 90. In addition to that his heart rate has been dropped into the 50s and 60s. I reassured him that this is all related to his underlying be sleep in good sleep hygiene. We did download the BiPAP. His AHI down to 0.2. He started volumes are stable his minute ventilation is also stable and his central sleep apnea index is low as well. Does complaint of dyspnea on exertion mild in severity. We did have him get a pulmonary function studies demonstrating a mild restrictive ventilatory defect consistent with his body habitus. He is going to start working on weight loss. In the meantime will going to continue the BiPAP at current settings. View of the hypoxia at having doing overnight oximetry. 02/25/2022 the patient is here for a pulmonary follow-up visit. Since we last spoke the patient has been concerned about his oxygen levels. He has been noticing that when he monitors his oxygen at nighttime his oxygen is may drop to the 70s and 80s. He is wondering if he needs to use oxygen with the BiPAP. In addition to that he is describing increasing dyspnea on exertion. Sometimes when he checks his oxygen with activity may drop to 92%. His shortness of breath is moderate severity. It does improve once he is resting. He recently did have a cardiac evaluation per the patient. Both an echocardiogram and stress test. I will request those results from his primary care doctor's office. Recently the patient also underwent a chest x-ray at [facility] and I will request that as well. The patient also developed severe norovirus with significant diarrhea and dehydration. He was briefly admitted to the [facility]. Here he did undergo a CT scan of the abdomen and pelvis. We did visualize the lung windows and his lung parenchyma appears to be healthy. His pulmonary trunk from pulmonary artery also appeared to be normal size which is reassuring regarding the risk of pulmonary hypertension. During the visit we did go for 6 minutes walk test. The patient did ambulate well. He had a dyspnea score of 3/10 and his oxygen did decrease down to 93%. in regards to the BiPAP we did download the data. It appears that his AHI is still very good around 1.6. However he is having more central apneas up to 3 events an hour. Explained to him that 1 possibility is that we are over treating his obstructive sleep apnea and therefore blowing out too much CO2 and therefore causing central apneic episodes. Therefore I did decrease his pressures from 12/8 to 11/7. He will trial this pressure and also we will perform a formal overnight oximetry. If the patient does have significant hypoxia while sleeping then he will require titration study to further figure out if he has a complex sleep apnea that requires a different modalities such as ASV versus IVAP. 04/28/2022 the patient is here for a pulmonary follow-up visit. He is very concerned about his lung health. Apparently patient did have a CT scan of the abdomen and pelvis which demonstrated a cystic lesion. The patient does have a significant family history of lung cancer. His dad had lung cancer and . Then, his history ended up with lung cancer and also bladder cancer that ultimately metastasized. More recently his brother also was diagnosed with lung cancer was just operated on and had surgery with curative intent. He still does not know the pathology or if any molecular markers were done. In the meantime the patient does have shortness of breath and also has a chronic cough. He did undergo pulmonary function studies demonstrated restrictive lung disease. He did have a chest x-ray which was not helpful. And again, his CT scan of the abdomen demonstrated a cystic lesion. At this time the best thing to do will be to do a CT scan to further address his ongoing symptoms and also to move follow-up the abnormal finding on the CT scan of the abdomen and pot entially evaluate for other abnormalities. He continues use the BiPAP. He was supposed to undergo an overnight oximetry while on the BiPAP on room air. However, he never got a call. Will go ahead and send the request to a different [employer] company to see if we can have that done as soon as possible. 08/11/2022 the patient is here for a pulmonary follow-up visit. The patient overall has been doing well. He has been using his BiPAP every night. He did get a different mask and that he is very comfortable with although he does not have the name all the company that makes it. He is going to look into it and let me know via portal or call. He does use [employer]. Once I know the mask that works for him I will requested from his [employer] company. His current settings are 11/7. We had decreased during the last visit. Sometimes he feels like he is having some vivid dreams in his like he is not getting enough pressure. Although his current apnea-hypopnea index is actually 0.3. This is reassuring that he really does not need too much pressure changes. Therefore will increase slightly to 12/8. He will try this in the let me now if additional changes are required. We did also review his CT scan of the chest. No significant findings. Does have a tiny 2 mm pulmonary nodule as well as the cystic lesion. She is concerned with a family history of significant cancers. I have reassured him that this is nothing to be concerned about and that will continue to follow closely with another CT scan in a year's time. The patient will follow-up after the CT scan. 03/07/2024 the patient is here for a pulmonary follow-up visit. He has a significant amount of weight loss. He is working closely with his primary care and other specialists because of some GI in renal issues. These seem to be stabilizing. He has been struggling with BiPAP. Still having episodes of shortness breath and tachypnea while sleeping. We did download the BiPAP. It seems like his AHI is elevated between 6-7 episodes per hour. His current settings of 12/8. This set up spontaneous. I switched her over to auto BiPAP in left settings as the fall. Will have him try the auto BiPAP for week and then he will call to further adjusted so I can download the data. Sounds like he needs more pressure. If he does not tolerate the auto BiPAP that I can always switching to regular spontaneous BiPAP and increase the settings. If he continues to be symptomatic also consider getting a blood gas to assess for hypercarbia or for metabolic acidosis to try explain the tachypnea. The patient is also concerned about the pulmonary nodules. His last CT scan was back in the fall 2022. He has numerous subcentimeter pulmonary nodules. He does have a positive family history of lung cancer both his that his brother and he is very concerned about the possibility of having cancer. Therefore will have him get a repeat CT scan will follow-up. The patient also again will call once she gets situated with the new settings on the BiPAP she can download the data in review it. 09/12/2024 the patient is here for a pulmonary follow-up visit. Is find out that he is having issues with his liver so he is trying to take care that. He may have a little cirrhosis. He is going to follow-up with his doctor soon. In the meantime he is also having some shoulder discomfort primarily the right 1 he is getting physical therapy for the from a respiratory status the patient did get a CT scan of the chest. We did review together. Appears that he has a little subpleural blebs although I would not call a significant emphysema as is mentioned in the report. The patient does have stable pulmonary nodules that have been stable now for couple years therefore we can hold off on additional imaging. He also has a bronchogenic cyst which is small and benign appearing. He does have some physical type of debris in the esophagus suggesting some degree of reflux disease. We did talk about making sure that he has is a bed elevated. He will try some bed risers. The patient has been using the BiPAP. BiPAP therapy has been affecting beneficial. Uses it a pressure 15/10. We initially try auto BiPAP but he did not tolerate that so we switched him back. Does wake up sometimes short of breath like he is getting too much pressure. Will try to decrease the pressure some to 14/11. The patient's AHI is 5.7 so therefore seems to be okay but denies give a bringing down more. He does wake up short of breath so try to decrease the pressure little bit. COUNT INCLUDES THE [facility] Medical History (Updated 03/07/24 @ 21:29 by Jeet Thompson MD) Pulmonary nodule Lung cyst Dyspnea Chronic restrictive lung disease BRICE treated with BiPAP Family History (Updated 11/22/21 @ 13:49 by Felix Oliver MD) Brother Diabetes Social History Household Members: None Housing: Apartment Do you presently have visiting nurse or other home services: No Alcohol intake: never Patient Tobacco Use Status: Former Tobacco user Tobacco use type: Cigarette Years Smoked: 4 Years Advance Directives Date on File: 11/22/21 service: No Current occupational status: employed Review of Systems Const Reports difficulty sleeping, Denies night sweats and Reports weight loss ENT Denies change in voice, Denies lip swelling, Denies mouth pain, Reports nasal congestion, Reports nasal discharge and Denies tongue swelling Card Denies chest pain, Reports dyspnea and Reports dyspnea on exertion Resp Reports cough, Reports dyspnea and Reports dyspnea on exertion GI Denies abdominal pain Musc Denies no additional complaints Neuro Denies Neuro-related abnormal movements Psych Denies no additional complaints Geovany/Lymph Denies easy bleeding and Denies lymphadenopathy Aller/Immun Denies lip swelling and Denies tongue swelling Physical Exam Vital Signs: Last Vital Signs Pulse 65 09/12/24 09:01 BP 110/74 09/12/24 09:01 Pulse Ox 98 09/12/24 09:01 Oxygen Delivery Method Room Air 09/12/24 09:01 BMI result Body Mass Index 38.8 Const General: alert HEENT General nose exam: Abnormal external nose present and Nasal discharge present Eyes Pupils: Equal, round and reactive pupils present Neck Neck: Yes normal visual inspection, Yes full ROM and Yes no lymphadenopathy Chest Chest palpation & inspection: normal inspection of the chest Resp Auscultation: no rales, no rhonchi, no wheezes and diminished lung sounds Cardio Rate: regular rate Rhythm: regular rhythm Heart sounds: S1 normal heart sound present and S2 normal heart sound present GI Palpation (GI): Soft to palpation and nontender Auscultation: normal bowel sounds General: Yes no CVA tenderness Back/Spine/Pelvis Back: no CVA tenderness Skin General skin exam: rashes and/or lesions noted Neuro Cranial nerves: Yes Equal, round and reactive pupils present Assessment & Plan Assessment & Plan (1) BRICE treated with BiPAP: Code(s): G47.33 - Obstructive sleep apnea (adult) (pediatric) Category: Medical Plan: continue BIPAP 08/14 (2) Chronic restrictive lung disease: Code(s): J98.4 - Other disorders of lung Category: Medical Plan: Weight management (3) Dyspnea: Comment: Deconditioning Code(s): R06.00 - Dyspnea, unspecified Category: Medical Qualifiers: Dyspnea type: shortness of breath Qualified Code(s): R06.02 - Shortness of breath Plan: Exercise program (4) Hypoxia: Code(s): R09.02 - Hypoxemia Category: Medical Plan continue BiPAP, AHI 5.7, adjusted 21/07 DME, [employer] repeat CT chest stable Trazodone for sleep follow-up in 6 months Coding Level of Care Code Est Pt Level 4 (15198) Diagnoses BRICE treated with BiPAP G47.33 Chronic restrictive lung disease J98.4 Shortness of breath R06.02 Dyspnea type: shortness of breath Hypoxia R09.02 Time Spent (min) 17
[2024-09-12 09:01] VITALS: BP 110/74; PULSE 65; O2SAT 98; BMI 38.8
== END 2024-09-12 09:23 | disposition home or self-care (01) ==
PROVIDERS: PCP Internal Medicine; Visit Provider Hospitalist
DX: G47.33 Obstructive sleep apnea (adult) (pediatric) (principal); J98.4 Other disorders of lung; R06.02 Shortness of breath; R09.02 Hypoxemia
CPT/HCPCS: 99214

== ENCOUNTER 2025-03-27 09:12 | Outpatient (AMB) | payer OTHER, SELFPAY ==
[2025-03-27 09:15] VITALS: BP 108/56; PULSE 79; O2SAT 97; BMI 40.3
--- NOTE | 2025-03-27 09:15 | MHC.OFFVIS ---
Vital Signs 03/27/25 09:15 Height 6 ft 2 in Weight 314 lb 2.539 oz BMI 40.3 BP 108/56 L Blood Pressure Location Lt brachial Position Sitting Pulse 79 Pulse Source Pulse Oximeter Pulse Oximetry (%) 97 Oxygen Delivery Method Room Air Intake Visit Reasons: Obstructive sleep apnea Accompanied by: Self / Same As Patient Allergies Amoxicillin Allergy (Mild, Uncoded 09/12/24 09:03) Hives PCN Allergy (Mild, Uncoded 09/12/24 09:03) Hives HPI Comments Details: The patient is a 60-year-old gentleman known hypertension in addition to obstructive sleep apnea and obesity. He has been using BiPAP for his obstructive sleep apnea for many years. The therapy has been affecting beneficial. He does uses BiPAP for more than 4 hours a night. Sometimes he feels like he is not getting enough pressure from his current BiPAP. He has had this machine now for about 10 years. The machine is not working correctly at this time. Difficult to get download from the machine at this time. Will request a replacement through his current [employer] company, [employer]. The patient reports that he dyspnea [id number]. Specially when going up a flight of stairs. He has also noticed that his pulse oximeter has been on the low side down to 93%. He did have a chest x-ray recently in March 2020 at [facility] when he presented with chest pains. The chest x-ray is otherwise clear. Did have lower expansion of the lungs likely from his obesity. 07/02/2020 the patient is here for pulmonary follow-up visit. He has multiple concern specially with sleep. He does have a up washings been monitoring his heart rate and pulse ox. He has been noticing low pulse ox of 90. In addition to that his heart rate has been dropped into the 50s and 60s. I reassured him that this is all related to his underlying be sleep in good sleep hygiene. We did download the BiPAP. His AHI down to 0.2. He started volumes are stable his minute ventilation is also stable and his central sleep apnea index is low as well. Does complaint of dyspnea on exertion mild in severity. We did have him get a pulmonary function studies demonstrating a mild restrictive ventilatory defect consistent with his body habitus. He is going to start working on weight loss. In the meantime will going to continue the BiPAP at current settings. View of the hypoxia at having doing overnight oximetry. 02/25/2022 the patient is here for a pulmonary follow-up visit. Since we last spoke the patient has been concerned about his oxygen levels. He has been noticing that when he monitors his oxygen at nighttime his oxygen is may drop to the 70s and 80s. He is wondering if he needs to use oxygen with the BiPAP. In addition to that he is describing increasing dyspnea on exertion. Sometimes when he checks his oxygen with activity may drop to 92%. His shortness of breath is moderate severity. It does improve once he is resting. He recently did have a cardiac evaluation per the patient. Both an echocardiogram and stress test. I will request those results from his primary care doctor's office. Recently the patient also underwent a chest x-ray at [facility] and I will request that as well. The patient also developed severe norovirus with significant diarrhea and dehydration. He was briefly admitted to the [facility]. Here he did undergo a CT scan of the abdomen and pelvis. We did visualize the lung windows and his lung parenchyma appears to be healthy. His pulmonary trunk from pulmonary artery also appeared to be normal size which is reassuring regarding the risk of pulmonary hypertension. During the visit we did go for 6 minutes walk test. The patient did ambulate well. He had a dyspnea score of 3/10 and his oxygen did decrease down to 93%. in regards to the BiPAP we did download the data. It appears that his AHI is still very good around 1.6. However he is having more central apneas up to 3 events an hour. Explained to him that 1 possibility is that we are over treating his obstructive sleep apnea and therefore blowing out too much CO2 and therefore causing central apneic episodes. Therefore I did decrease his pressures from 12/8 to 11/7. He will trial this pressure and also we will perform a formal overnight oximetry. If the patient does have significant hypoxia while sleeping then he will require titration study to further figure out if he has a complex sleep apnea that requires a different modalities such as ASV versus IVAP. 04/28/2022 the patient is here for a pulmonary follow-up visit. He is very concerned about his lung health. Apparently patient did have a CT scan of the abdomen and pelvis which demonstrated a cystic lesion. The patient does have a significant family history of lung cancer. His dad had lung cancer and . Then, his history ended up with lung cancer and also bladder cancer that ultimately metastasized. More recently his brother also was diagnosed with lung cancer was just operated on and had surgery with curative intent. He still does not know the pathology or if any molecular markers were done. In the meantime the patient does have shortness of breath and also has a chronic cough. He did undergo pulmonary function studies demonstrated restrictive lung disease. He did have a chest x-ray which was not helpful. And again, his CT scan of the abdomen demonstrated a cystic lesion. At this time the best thing to do will be to do a CT scan to further address his ongoing symptoms and also to move follow-up the abnormal finding on the CT scan of the abdomen and potentially evaluate for other abnormalities. He continues use the BiPAP. He was supposed to undergo an overnight oximetry while on the BiPAP on room air. However, he never got a call. Will go ahead and send the request to a different [employer] company to see if we can have that done as soon as possible. 08/11/2022 the patient is here for a pulmonary follow-up visit. The patient overall has been doing well. He has been using his BiPAP every night. He did get a different mask and that he is very comfortable with although he does not have the name all the company that makes it. He is going to look into it and let me know via portal or call. He does use [employer]. Once I know the mask that works for him I will requested from his [employer] company. His current settings are 11/7. We had decreased during the last visit. Sometimes he feels like he is having some vivid dreams in his like he is not getting enough pressure. Although his current apnea-hypopnea index is actually 0.3. This is reassuring that he really does not need too much pressure changes. Therefore will increase slightly to 12/8. He will try this in the let me now if additional changes are required. We did also review his CT scan of the chest. No significant findings. Does have a tiny 2 mm pulmonary nodule as well as the cystic lesion. She is concerned with a family history of significant cancers. I have reassured him that this is nothing to be concerned about and that will continue to follow closely with another CT scan in a year's time. The patient will follow-up after the CT scan. 03/07/2024 the patient is here for a pulmonary follow-up visit. He has a significant amount of weight loss. He is working closely with his primary care and other specialists because of some GI in renal issues. These seem to be stabilizing. He has been struggling with BiPAP. Still having episodes of shortness breath and tachypnea while sleeping. We did download the BiPAP. It seems like his AHI is elevated between 6-7 episodes per hour. His current settings of 12/8. This set up spontaneous. I switched her over to auto BiPAP in left settings as the fall. Will have him try the auto BiPAP for week and then he will call to further adjusted so I can download the data. Sounds like he needs more pressure. If he does not tolerate the auto BiPAP that I can always switching to regular spontaneous BiPAP and increase the settings. If he continues to be symptomatic also consider getting a blood gas to assess for hypercarbia or for metabolic acidosis to try explain the tachypnea. The patient is also concerned about the pulmonary nodules. His last CT scan was back in the fall 2022. He has numerous subcentimeter pulmonary nodules. He does have a positive family history of lung cancer both his that his brother and he is very concerned about the possibility of having cancer. Therefore will have him get a repeat CT scan will follow-up. The patient also again will call once she gets situated with the new settings on the BiPAP she can download the data in review it. 09/12/2024 the patient is here for a pulmonary follow-up visit. Is find out that he is having issues with his liver so he is trying to take care that. He may have a little cirrhosis. He is going to follow-up with his doctor soon. In the meantime he is also having some shoulder discomfort primarily the right 1 he is getting physical therapy for the from a respiratory status the patient did get a CT scan of the chest. We did review together. Appears that he has a little subpleural blebs although I would not call a significant emphysema as is mentioned in the report. The patient does have stable pulmonary nodules that have been stable now for couple years therefore we can hold off on additional imaging. He also has a bronchogenic cyst which is small and benign appearing. He does have some physical type of debris in the esophagus suggesting some degree of reflux disease. We did talk about making sure that he has is a bed elevated. He will try some bed risers. The patient has been using the BiPAP. BiPAP therapy has been affecting beneficial. Uses it a pressure 15/10. We initially try auto BiPAP but he did not tolerate that so we switched him back. Does wake up sometimes short of breath like he is getting too much pressure. Will try to decrease the pressure some to 14/11. The patient's AHI is 5.7 so therefore seems to be okay but denies give a bringing down more. He does wake up short of breath so try to decrease the pressure little bit. 03/27/2025 the patient is here for a pulmonary follow-up visit. Overall he is doing okay from a respiratory status. He does continue with the BiPAP with good effect. BiPAP therapy has been affecting beneficial. He does use it for more than 4 hours a night. He averages around 1 episode an hour which is reassuring. The patient has been struggling with a cough though the cough seems to be worsening in the last several weeks. Not getting any significant relief. He does have significant postnasal drip and also has had some reflux symptoms recently. The patient is concerned because his brother was diagnosed with lung cancer for the 2nd time in his concerned because of the increased risk that he has based on his family history. He has underlying pulmonary nodules. The last time that we reviewed his CAT scan was back in July 2024 demonstrating subcentimeter pulmonary nodules and also some mild emphysema. Will plan to repeat the CAT scan July 2025. The meantime will go ahead and treat him for sinusitis he will continue with his current BiPAP and will follow-up after his CAT scan. [facility] Medical History (Updated 03/27/25 @ 22:21 by Jeet Thompson MD) Chronic cough Family history of lung cancer Pulmonary nodule Lung cyst Dyspnea Chronic restrictive lung disease BRICE treated with BiPAP Family History (Updated 11/22/21 @ 13:49 by Felix Oliver MD) Brother Diabetes Social History Household Members: None Housing: Apartment Do you presently have visiting nurse or other home services: No Alcohol intake: never Patient Tobacco Use Status: Former Tobacco user Tobacco use type: Cigarette Years Smoked: 4 Years Advance Directives Date on File: 11/22/21 service: No Current occupational status: employed Review of Systems Const Denies chills, Denies fatigue, Denies fever(s), Denies weight gain and Denies weight loss ENT Denies dizziness, Denies lip swelling and Denies tongue swelling Card Denies chest pain, Denies leg edema, Denies lightheadedness, Denies palpitations, Reports dyspnea on exertion, Denies orthopnea and Denies other Resp Reports cough and Reports dyspnea on exertion GI Denies hematochezia and Denies change in stool character Musc Denies abnormal gait, Denies muscle weakness, Denies numbness, Denies radiating pain into limb and Denies tingling Neuro Denies abnormal gait, Denies dizziness, Denies numbness and Denies tingling Psych Denies no additional complaints Endo Denies fatigue and Denies palpitations Geovany/Lymph Denies easy bleeding and Denies lymphadenopathy Aller/Immun Denies lip swelling and Denies tongue swelling Physical Exam Vital Signs: Last Vital Signs Pulse 79 03/27/25 09:15 BP 108/56 L 03/27/25 09:15 Pulse Ox 97 03/27/25 09:15 Oxygen Delivery Method Room Air 03/27/25 09:15 BMI result Body Mass Index 40.3 Const General: alert HEENT General nose exam: Abnormal external nose present and Nasal discharge present Eyes Pupils: Equal, round and reactive pupils present Neck Neck: Yes normal visual inspection, Yes full ROM and Yes no lymphadenopathy Chest Chest palpation & inspection: normal inspection of the chest Resp Auscultation: no rales, no rhonchi, no wheezes and diminished lung sounds Cardio Rate: regular rate Rhythm: regular rhythm Heart sounds: S1 normal heart sound present and S2 normal heart sound present GI Palpation (GI): Soft to palpation and nontender Auscultation: normal bowel sounds General: Yes no CVA tenderness Back/Spine/Pelvis Back: no CVA tenderness Skin General skin exam: rashes and/or lesions noted Neuro Cranial nerves: Yes Equal, round and reactive pupils present Assessment & Plan Assessment & Plan (1) BRICE treated with BiPAP: Code(s): G47.33 - Obstructive sleep apnea (adult) (pediatric) Category: Medical Plan: continue BIPAP 08/14 (2) Chronic restrictive lung disease: Code(s): J98.4 - Other disorders of lung Category: Medical Plan: Weight management (3) Dyspnea: Comment: Deconditioning Code(s): R06.00 - Dyspnea, unspecified Category: Medical Qualifiers: Dyspnea type: shortness of breath Qualified Code(s): R06.02 - Shortness of breath Plan: Exercise program (4) Hypoxia: Code(s): R09.02 - Hypoxemia Category: Medical (5) Pulmonary nodule: Code(s): R91.1 - Solitary pulmonary nodule Category: Medical (6) Family history of lung cancer: Code(s): Z80.1 - Family history of malignant neoplasm of trachea, bronchus and lung Category: Medical (7) Chronic cough: Code(s): R05.3 - Chronic cough Category: Medical Plan continue BiPAP, AHI 5.7, adjusted 21/07 DME, [employer] repeat CT 07/2025, +FH of lung cancer Trazodone for sleep, will take 1/2 tab start Doxycycline for sinusitis start Fluticasone nasal spray PPI x 1-2 months follow-up in 4-5 months Orders: Orders CT chest wo IV con Today R91.1 - Solitary pulmonary nodule, Z80.1 - Family history of malignant neoplasm of trachea, bronchus and lung Medications: New doxycycline hyclate 100 mg PO BID 20 caps 0RF 10 days fluticasone propionate 50 mcg/actuation 2 sprays intranasal DAILY 15.8 mL 11RF 30 days J31.0 - Chronic rhinitis omeprazole 40 mg PO DAILY 30 caps 0RF trazodone 25 mg (1/2 x 50 mg) PO BEDTIME 15 tabs 6RF 30 days Coding Level of Care Code Est Pt Level 4 (81998) Complex EM visit Add On G2211 Diagnoses BRICE treated with BiPAP G47.33 Chronic restrictive lung disease J98.4 Shortness of breath R06.02 Dyspnea type: shortness of breath Hypoxia R09.02 Pulmonary nodule R91.1 Family history of lung cancer Z80.1 Chronic cough R05.3 Time Spent (min) 17
--- OUTSIDE RECORDS SUMMARY | 2025-03-27 09:33 | XMS_ITS | Data Portability ---
Author Organization [place] - [facility], [facility] Address [address] [place] [address] Care Team Providers Care Heavy Equipment Service Technician Name Role Phone LINDSEY MOORE Primary Care Provider [phone] Assessment No assessment recorded. Plan of Treatment Reminders Order Date Submit Date Provider Last Modified By Organization Details Last Modified Time Details Appointments None recorded. Lab None recorded. Referral physical therapist referral - End range stretchin g Rotator cuff and periscapu lar strengthe geoff with scapular stabiliza tion program Home exercise program 2023 024 carlie [facility] - [place] [facility] [address], [address] , [address], [place], [address], 4 10:52:17 Procedures None recorded. Surgeries None recorded. Imaging XR, shoulder, 2 or more view - R shoulder 4 view rm 214 2023 024 [facility], [address], [address], [place], [address], 4 12:57:46 MRI, shoulder, w/o contrast - R shoulder mri w/o contrast ? RCT 2023 024 [facility] ([facility]), [address], [place], [address], 4 12:57:47 Medication Orders None recorded. Patient TargetsNo targets recorded. Patient InstructionsNo instructions recorded. Reason for Referral Physical Therapist Referral for Calcific tendinitis of right shoulder End range stretchingRotator cuff and periscapular strengthening with scapular stabilization program Home exercise program Referring Physician: Cecilio Winnie, Orthopedic Surgery, [id number] Encounter Date: 08/15/2024 Results Created Date Observation Date Name Description Value Unit Range Abnormal Flag Note LastModifiedBy Organization Detail LastModifiedTime 07/11/20 24 07/11/2024 XRcecilio, 2 or more view http:/ [email or web address] ?Encry pted=s hAaTro YD8dLq bEUv6g %2BXZw aYqtaq 0bqfl% 2Fg9IQ a4ajBk vP9nXo QUaueC m3YtLR FvZlgJ JJ8mAn HZtai3 1u3060 AC0Kqa 3SCUKW uKiQtr MwF INTERFACE [facility] [address], [place], [address], 07/11/2024 14:55:36 07/11/20 24 07/11/2024 XRcecilio, 2 or more view http:/ [email or web address] ?Encry pted=s hAaTro YD8dLq bEUv6g %2BXZw aYqtaq 0bqfl% 2Fg9IQ a4ajBk vP9nXo QUaueC m3YtLR FvZlgJ JJ8mAn HZtai3 5b6647 AC0Kqa 3SCUKW uKiQtr MwF INTERFACE [facility] [address], [place], [address], 07/11/2024 14:55:38 08/03/20 24 08/01/2024 MRI, cecilio tan, w/o contr ast [facility] Access ion Number : [id number] Deborahyamel marcus Name: [place] Perezenrique woodard [facility] trevor Record Number : [id number] Date of : 1964 Date of Exam: 2023 Referr ing Physic emily: Naz HinesS [address] [place] [address] Exam: MR Should er (C-) CPT 56522 - Right Room Descri ption: [place] [facility] Pion 3T Should er MRI right Clinic al Histor y: Pain Findin gs: Modera te acromi oclavi cular osteoa rthrit is. Supras pinatu s tendon is intact . Large focus of calcif ic tendin itis/H ADD within anteri or footpr int fibers of the supras pinatu s tendon . Mild supras pinatu s and infras pinatu s tendin opathy . The teres minor tendon is intact . Mild fatty atroph y of the teres minor muscle belly. . The subsca pulari s tendon is intact . The long head of the biceps tendon is intact . The glenoi d labrum is not well evalua ambreen on this non-ar throgr am MR, but appear s grossl y intact . Interm ediate T2 signal within a thicke julieta inferi or glenoh umeral ligame nt Impres michele: Focus of calcif ic tendin itis/H ADD within distal supras pinatu s tendon fibers . Mild supras pinatu s and infras pinatu s tendin opathy . Mild fatty atroph y of the teres minor muscle belly can be seen with shania latera l space syndro me. Modera te acromi oclavi cular osteoa rthrit is Interm ediate T2 signal within a thicke julieta inferi or glenoh umeral ligame nt. Findin g can be seen with synovi tis and adhesi ve capsul itis. Electr onical ly Signed By: Parish Mills MD [email or web address] [facility] ([facility]) [address], [address], 08/16/2024 07:44:54 Result Notes Documentation Provider Name and Address Organization Details Recorded Time Xr, Shoulder, 2 Or More View : [email or web address] crypted=nrGoVzoTA2kVmuDCn3a %8IPYcxGjlnl4uzfb%5Tn0TRm4s hDnjV2tUjFXbzzIm7MxEVUxFpaZ WW6bKhTFkbk73k9804LV2Guw0RK UKWuKiQtrMwF Not Available [facility] 07/11/2024 14:55:37 Xr, Shoulder, 2 Or More View : [email or web address] crypted=ivCzNkpSJ6xOgaABs0e %2JPIneCevux5ztxz%4By5KSc5k rRajI8gDyLXbzhDa9TsLOCyMsqW OX0qHlRQrfb32l9725DP8Ugp3VG UKWuKiQtrMwF Not Available [facility] 07/11/2024 14:55:39 Mri, Shoulder, W/o Contrast : [facility] Accession Number: [id number] Patient Name: Ernesto Lai Date of : 1965 Date of Exam: 08-01-2024 Referring Physician: Naz Hines [address] [place] [address] Exam: MR Shoulder (C-) CPT 93883 - Right Room Description: [facility] 3T Shoulder MRI right Clinical History: Pain Findings: Moderate acromioclavicular osteoarthritis. Supraspinatus tendon is intact. Large focus of calcific tendinitis/HADD within anterior footprint fibers of the supraspinatus tendon. Mild supraspinatus and infraspinatus tendinopathy. The teres minor tendon is intact. Mild fatty atrophy of the teres minor muscle belly. . The subscapularis tendon is intact . The long head of the biceps tendon is intact . The glenoid labrum is not well evaluated on this non-arthrogram MR, but appears grossly intact . Intermediate T2 signal within a thickened inferior glenohumeral ligament Impression: Focus of calcific tendinitis/HADD within distal supraspinatus tendon fibers. Mild supraspinatus and infraspinatus tendinopathy. Mild fatty atrophy of the teres minor muscle belly can be seen with quadrilateral space syndrome. Moderate acromioclavicular osteoarthritis Intermediate T2 signal within a thickened inferior glenohumeral ligament. Finding can be seen with synovitis and adhesive capsulitis. Electronically Signed By: Cecilio Hines MD [address], [place], [address], [facility] 08/16/2024 07:44:54 Problems Name Problem SNOMED Code Status Onset Date Resolution Date Notes Provider Name and Address Organization Details Recorded Time Calcific tendinitis of right shoulder 6691885328063 07 Active 2023 Cecilio Zhou PA-C [address], [place], [address], [facility] 4 13:11:54 Problem Notes None recorded. Medical Equipment None Reported. Allergies Allergen ID Allergen Name Allergen Category Reaction Reaction Severity Criticality Documentation Date Start Date Code Code System Note Provider Name and Address Organization Details Recorded Time 102500 amoxicill in medicatio n Not available Not available Not available 07/11/2024 723 [facility] 14:47:43 10791 Product containin g penicilli n (product) medicatio n Not available Not available Not available 11/09/20232022 73977 8001 SNOMED Not Available [facility] 14:03:51 Medications Name Sig Start Date Stop Date Status Note LastModified by Organization Details LastModified Time trazodone 50 mg tablet TAKE 1 TABLET BY MOUTH EVERY DAY AT BEDTIME NEEDED FOR 30 DAYS active Not Available Not Available No t Available lorazepam 0.5 mg tablet TAKE 1 TABLET BY MOUTH ONCE DAILY NEEDED FOR 30 DAYS active Not Available Not Available No t Available benzonatate 100 mg capsule TAKE 1 CAPSULE BY MOUTH THREE TIMES A DAY FOR 10 DAYS NEEDED active Not Available Not Available No t Available lisinopril 10 mg tablet TAKE 1 TABLET BY MOUTH EVERY DAY FOR 90 DAYS active Not Available Not Available No t Available lorazepam 1 mg tablet TAKE 1 TABLET BY MOUTH EVERY DAY AT BEDTIME NEEDED FOR 30 DAYS active Not Available Not Available No t Available methylpredn isolone 4 mg tablets in a dose pack TAKE DIRECTED BY MOUTH FOR 6 DAYS active Not Available Not Available No t Available fluticasone propionate 50 mcg/actuati on nasal spray,suspe nsion SPRAY 2 SPRAYS INTO EACH NOSTRIL EVERY DAY FOR 30 DAYS active Not Available Not Available No t Available Ativan Ativan 2MG Tablet 05/15 completed Statu s: 'Disc ontin ued'; Not Available Not Available Not Available lisinopril active Not Available Not Av ailable Not Available Vitals Date Recorded Body height Body mass index (BMI) Body weight Provider Name and Address Organization Details Last Updated DateTime 07/11/2024 187.96 cm 37.1 kg/m2 099112.19 g PATTI BENITES [facility] 07/11/2024 14:47:19 Date Recorded Body height Body mass index (BMI) Body weight Provider Name and Address Organization Details Last Updated DateTime 08/15/2024 187.96 cm 37.1 kg/m2 041046.19 g Cecilio Zhou PA-C [address], [place], [address], [facility] 08/15/2024 12:57:47 Social History None recorded. Functional Status None recorded. Mental Status None recorded. Family History Nothing Reported. Medical History Condition Response Allergies/Hayfever N Coronary Artery Disease N Anxiety/Depression N Breathing or lung disorders N Emphysema N Nerve Disorders N Thyroid Problems N COPD N Pacemaker N Anemia N Kidney/Bladder Problems N Vascular Disease N Heart Trouble N Heart Attack ([place]) N Gastrointestinal Disease N Cholesterol N Diabetes N Autoimmune disease N Bleeding Disorder N Inflammatory Joint disease N Orthotics N Arthritis N Seizures/Epilepsy N Blood Clot N AIDS/HIV N Congestive Heart Failure (CHF) N Acid Reflux (GERD) N Cancer N Stroke N Asthma Y Circulation Problems N Peripheral Vascular Disease N Sleep Apnea Y Hepatitis N Heart Disease N Rheumatoid Arthritis N Arrhythmia N Pulmonary Embolism N Headaches N Fibromyalgia N Hypertension Y Osteoporosis N Past Encounters Encounter ID Performer Location Encounter Start Date Encounter Closed Date Diagnosis/Indication Diagnosis SNOMED-CT Code Diagnosis ICD10 Code Diagnosis Note [id number] MD Katherine Weber [address] [place] [address] 07/11/2024 14:26:33 08/08/2024 12:57:46 Pain of right shoulder joint [id number] 8841200 M25.500 [id number] OZIEL Lawson [address] [place] [address] 08/15/2024 12:44:31 09/02/2024 10:52:17 Calcific tendinitis of right shoulder 8467071019 00518 M75.31 Health Concerns Section Related Observation LastModified by Organization Detai ls LastModified Time None Recorded Concern Status LastModified by Organization Details LastModified Time None Recorded Advance Directives Directive None Recorded Payers Insurance Date Sequence Insurance Name Policy Number Policy Esposito Covered Member ID Esposito Member ID Guarantor Name 09/02/[address] [place] [address] [id number] Ernesto Lai [id number] Ernesto Lai Notes Date Note Type Note Provider Name and Address Organization Details Recorded Time 07/11/2024 text/html Chief Complaint: Right shoulder pain HPI: 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 No specific injury that he can recall. Pain is felt over the anterolateral aspect of the shoulder, exacerbated by initiation of flexion, weightbearing, and specifically external rotation with the arm flexed. Interestingly, no pain with overhead reach or internal rotation behind the back. He does note crepitus, but reports that this has been present his whole life, nothing new. No injections or formal physical therapy. Has been modifying activities for months, taking zjhm-agz-asqxujd oral medications including anti-inflammatories and Tylenol, though without relief. 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 Single, with children. Denies tobacco or alcohol use. Family Hx: noncontributory ROS: Negative x12 except as noted above in the HPI Past family, medical, social history and review of systems have been reviewed and updated on the medical history sheet saved to the patient's chart. A 12-point review of systems is negative x12 except as noted above and/or on the medical history sheet. Examination: Pleasant 59-year-old gentleman in no acute distress. 6 feet 2 inches, 280 pounds. On exam of the right upper extremity, skin over the shoulder is intact. No effusion, no gross atrophy. No point tenderness to palpation. Active and passive forward elevation with elbow extended is 165 with mildly positive Neer and Lam. With elbow flexed, however, the patient has significant discomfort with initiation of flexion. Passive external rotation 70 with negative ER lag without pain. Internal rotation L3. S 5/5 strength with scaption, IR, ER. Mild nerve discomfort with resisted empty can testing. Negative Yergason's but very very positive Bee's, positive cross body adduction. Sensation intact in an axillary distribution. Fires EPL, FPL and intrinsics. Hand is warm and well-perfused. Imaginv of the Right shoulder ordered and obtained at [facility] today were reviewed during the visit. These demonstrate good preservation of glenohumeral and AC joint spaces. Calcium deposit within the cuff insertion, best appreciated on Grashey view. Type II acromion. Humeral head centered on axillary view. No proximal migration humeral head. 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 A bit of an unusual exam, but suggestive of very symptomatic SLAP pathology, less likely AC pathology. Plan: Given chronic symptoms for many years, getting worse, despite conservative treatment, including oral medications and activity modification, would recommend moving forward with an MRI of the right shoulder. We will plan to see the patient back once the MRI is done to review the results and talk about next steps based on the findings. [employer] speech recognition gas main fitter helper software was used to create portions of this document. An attempt at proofreading has been made to minimize errors. Please call for corrections. Naz Hines MD [address] [place] [address] [address] [facility], [place], [address], [facility] [place] [facility] 08/03/2024 09:40:13 08/15/2024 text/html I am seeing the patient today under the supervision of Dr. Hines who was available but who did not see the patient. HPI: Patient is seen today for follow-up evaluation of their right shoulder MRI. Previous clinical history outlined in Dr. Hines's most recent office visit. Patient admittedly states he has some underlying phobia when it comes to medication and different injections he has not yet been to physical therapy continues to have intermittent pain in particular with sleeping at nighttime. MRI findings: Independently reviewed today of the right shoulder demonstrates calcific tendinopathy, subacromial bursitis, reactive AC joint arthritis, type II acromion well-preserved glenohumeral joint. PHYSICAL EXAMINATION: The patient is well appearing and in no apparent distress. Alert and oriented x3. Gait is symmetric. Right shoulder demonstrates forward elevation to 160 degrees, external rotates 45 , internal rotates back pocket. Positive impingement arc with bursal crepitance. AC joint is palpated and moderately tender, rotator cuff strength 4/5 with horizontal elevation and external rotation. Subscapularis and belly press tests normal. Cervical range of motion unrestricted in all planes. IMPRESSION: Right shoulder impingement, calcific tendinitis, AC joint arthritis. PLAN: We talked briefly about treatment options ultimately we discussed the potential benefit of a subacromial space injection which he declined. After brief conversation ultimately decided to go forward with referral to outpatient physical therapy. If symptoms do escalate are not responsive to therapy he will call and we can discuss injection at that time. [employer] [facility] speech recognition gas main fitter helper software was used to create portions of this document. An attempt at proofreading has been made to minimize errors. Please call for corrections. Cecilio Zhou PA-C [address] [place] [address] [address], [place], [address], [facility] 08/15/2024 13:22:48
--- OUTSIDE RECORDS SUMMARY | 2025-03-27 09:33 | XMS_ITS | Clinical Summary ---
Author Organization [facility] Address [address] [place] [address] Care Team Providers Care Field Manager Name Role Phone Roberto Dominique MD Primary Care Provider [phone] Social History Tobacco Use Types Packs/Day Years Used Date Smoking Tobacco: Former Smokeless Tobacco: Never Alcohol Use Standard Drinks/Week Comments Not Currently 0 (1 standard drink = 0.6 oz pur e alcohol) Sex and Gender Information Value Date Recorded Sex Assigned at Not on file Legal Sex Male 3:26 PM EST Gender Identity Not on file Sexual Orientation Not on file Obstetrics History Last Filed Vital Signs Vital Sign Reading Time Taken Comments Blood Pressure 136/74 06/02/2022 7:42 AM EDT Sitting L Arm Pulse 77 06/02/2022 7:42 AM EDT Temperature - - Respiratory Rate - - Oxygen Saturation - - Inhaled Oxygen Concentration - - Weight 149 kg (327 lb 12.8 oz) 06/02/2022 7:42 AM EDT Height 188 cm (6' 2 ) 06/02/2022 7:42 AM EDT Body Mass Index 42.09 06/02/2022 7:42 AM EDT Plan of Treatment Health Maintenance Due Date Last Done Comments DTaP,Tdap,and Td Vaccines (1 - Tdap) 02/20/1984 Pneumococcal Vaccine: 50+ Ye ars (1 of 1 - PCV) 2015 Zoster Vaccines (1 of 2) 2015 Cholesterol Screening (Lipid Panel) 08/06/2022 Colorectal Cancer Screening: Colonoscopy 08/06/2022 HIV Screening 08/06/2022 Hepatitis C Screening 08/06/2022 Social Influencers of Health Screening 08/06/2022 COVID-19 Vaccine (1 - 2023-2 5 season) 2024 Depression Screening 09/07/2024 RSV Immunization Adult Patie nts (1 - Risk 60-74 years 1-dose series) 2025 Influenza Vaccine (#1) 2025 HIB Vaccines Aged Out No longer eligi ble based on patient's age to complete this topic HPV Vaccines Aged Out No longer eligi ble based on patient's age to complete this topic Hepatitis A Vaccines Aged Out No long er eligible based on patient's age to complete this topic Hepatitis B Vaccines Aged Out No long er eligible based on patient's age to complete this topic IPV Vaccines Aged Out No longer eligi ble based on patient's age to complete this topic MMR Vaccines Aged Out No longer eligi ble based on patient's age to complete this topic Meningococcal ACWY Vaccine Aged Out N o longer eligible based on patient's age to complete this topic Meningococcal B Vaccine Aged Out No l onger eligible based on patient's age to complete this topic RSV Immunization Patients Un dominick 20 months Aged Out No longer eligible b ased on patient's age to complete this topic Varicella Vaccines Aged Out No longer eligible based on patient's age to complete this topic Care Teams Field Manager Relationship Specialty Start Date End Date Roberto Dominique MD PCP - General 02/28/13
== END 2025-03-27 09:45 | disposition home or self-care (01) ==
LOC: HO.HPS 09:13
PROVIDERS: PCP Internal Medicine; Visit Provider Hospitalist
DX: G47.33 Obstructive sleep apnea (adult) (pediatric) (principal); J98.4 Other disorders of lung; R06.02 Shortness of breath; R09.02 Hypoxemia; R91.1 Solitary pulmonary nodule; Z80.1 Family history of malignant neoplasm of trachea, bronchus and lung; R05.3 Chronic cough
CPT/HCPCS: 99214; G2211

== ENCOUNTER 2025-07-31 09:13 | Outpatient (REF) | payer OTHER, SELFPAY ==
--- NOTE | ~2025-07-31 | CT_ITS ---
EXAMINATION: CT CHEST WITHOUT IV CONTRAST INDICATION: R91.1 - Solitary pulmonary nodule COMPARISON: Comparison is made with the prior examination dated 08/01/2024. TECHNIQUE: Helical CT scan of the chest was performed without intravenous contrast. Coronal and sagittal reformatted images were generated and reviewed. This CT exam was performed with one or more of the following dose reduction techniques: automated exposure control, adjustment of the mA and/or kV according to patient size, use of iterative reconstruction technique. DLP: 296 mGy-cm CHEST: THYROID: The thyroid is unremarkable. LUNGS: No suspicious pulmonary nodules or airspace opacities are identified. MEDIASTINUM: There is no mediastinal lymphadenopathy. AMA: Evaluation of the hilar regions is limited by lack of intravenous contrast material. CARDIOVASCULATURE: The heart is normal in size. There is no pericardial effusion. The thoracic aorta is normal in caliber. DEGREE OF CORONARY CALCIFICATION: none PLEURA: There is no pleural effusion. No pneumothorax. MAIN AIRWAYS: The mainstem bronchi and proximal branches are patent. AXILLA: There is no axillary lymphadenopathy. BONES AND SOFT TISSUES: Unremarkable UPPER ABDOMEN: The visualized portions of the liver and adrenals have an unremarkable unenhanced appearance. The spleen is enlarged. CT/CT chest wo IV con IMPRESSION: 1. No suspicious pulmonary nodules are identified. 2. Splenomegaly. Electronically signed by: Zeb Vale MD 07/31/2025 09:56 AM [facility]
== END 2025-07-31 09:14 | disposition home or self-care (01) ==
LOC: HO.CT 09:13
PROVIDERS: PCP Internal Medicine; Visit Provider Hospitalist
DX: R91.1 Solitary pulmonary nodule (principal); Z80.1 Family history of malignant neoplasm of trachea, bronchus and lung
CPT/HCPCS: 71250

== ENCOUNTER → 2025-07-31 09:14 | Outpatient (BNV) | payer OTHER, SELFPAY | PROVIDERS: PCP Internal Medicine; Visit Provider Radiology Diagnostic Radiology | DX: R91.1 Solitary pulmonary nodule (principal); R16.1 Splenomegaly, not elsewhere classified | CPT/HCPCS: 71250 ==

== ENCOUNTER 2025-08-21 09:44 | Outpatient (AMB) | payer OTHER, SELFPAY ==
[2025-08-21 09:47] VITALS: BP 124/74; PULSE 72; O2SAT 95; BMI 41.3
--- NOTE | 2025-08-21 09:47 | MHC.OFFVIS ---
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 He has been using BiPAP for his obstructive sleep apnea for many years. The therapy has been affecting beneficial. He does uses BiPAP for more than 4 hours a night. Sometimes he feels like he is not getting enough pressure from his current BiPAP. He has had this machine now for about 10 years. The machine is not working correctly at this time. Difficult to get download from the machine at this time. Will request a replacement through his current [employer] company, [employer]. The patient reports that he dyspnea [id number]. Specially when going up a flight of stairs. He has also noticed that his pulse oximeter has been on the low side down to 93%. He did have a chest x-ray recently in March 2020 at [facility] when he presented with chest pains. The chest x-ray is otherwise clear. Did have lower expansion of the lungs likely from his obesity. 07/02/2020 the patient is here for pulmonary follow-up visit. He has multiple concern specially with sleep. He does have a up washings been monitoring his heart rate and pulse ox. He has been noticing low pulse ox of 90. In addition to that his heart rate has been dropped into the 50s and 60s. I reassured him that this is all related to his underlying be sleep in good sleep hygiene. We did download the BiPAP. His AHI down to 0.2. He started volumes are stable his minute ventilation is also stable and his central sleep apnea index is low as well. Does complaint of dyspnea on exertion mild in severity. We did have him get a pulmonary function studies demonstrating a mild restrictive ventilatory defect consistent with his body habitus. He is going to start working on weight loss. In the meantime will going to continue the BiPAP at current settings. View of the hypoxia at having doing overnight oximetry. 02/25/2022 the patient is here for a pulmonary follow-up visit. Since we last spoke the patient has been concerned about his oxygen levels. He has been noticing that when he monitors his oxygen at nighttime his oxygen is may drop to the 70s and 80s. He is wondering if he needs to use oxygen with the BiPAP. In addition to that he is describing increasing dyspnea on exertion. Sometimes when he checks his oxygen with activity may drop to 92%. His shortness of breath is moderate severity. It does improve once he is resting. He recently did have a cardiac evaluation per the patient. Both an echocardiogram and stress test. I will request those results from his primary care doctor's office. Recently the patient also underwent a chest x-ray at [facility] and I will request that as well. The patient also developed severe norovirus with significant diarrhea and dehydration. He was briefly admitted to the [facility]. Here he did undergo a CT scan of the abdomen and pelvis. We did visualize the lung windows and his lung parenchyma appears to be healthy. His pulmonary trunk from pulmonary artery also appeared to be normal size which is reassuring regarding the risk of pulmonary hypertension. During the visit we did go for 6 minutes walk test. The patient did ambulate well. He had a dyspnea score of 3/10 and his oxygen did decrease down to 93%. in regards to the BiPAP we did download the data. It appears that his AHI is still very good around 1.6. However he is having more central apneas up to 3 events an hour. Explained to him that 1 possibility is that we are over treating his obstructive sleep apnea and therefore blowing out too much CO2 and therefore causing central apneic episodes. Therefore I did decrease his pressures from 12/8 to 11/7. He will trial this pressure and also we will perform a formal overnight oximetry. If the patient does have significant hypoxia while sleeping then he will require titration study to further figure out if he has a complex sleep apnea that requires a different modalities such as ASV versus IVAP. 04/28/2022 the patient is here for a pulmonary follow-up visit. He is very concerned about his lung health. Apparently patient did have a CT scan of the abdomen and pelvis which demonstrated a cystic lesion. The patient does have a significant family history of lung cancer. His dad had lung cancer and . Then, his history ended up with lung cancer and also bladder cancer that ultimately metastasized. More recently his brother also was diagnosed with lung cancer was just operated on and had surgery with curative intent. He still does not know the pathology or if any molecular markers were done. In the meantime the patient does have shortness of breath and also has a chronic cough. He did undergo pulmonary function studies demonstrated restrictive lung disease. He did have a chest x-ray which was not helpful. And again, his CT scan of the abdomen demonstrated a cystic lesion. At this time the best thing to do will be to do a CT scan to further address his ongoing symptoms and also to move follow-up the abnormal finding on the CT scan of the abdomen and potentially evaluate for other abnormalities. He continues use the BiPAP. He was supposed to undergo an overnight oximetry while on the BiPAP on room air. However, he never got a call. Will go ahead and send the request to a different [employer] company to see if we can have that done as soon as possible. 08/11/2022 the patient is here for a pulmonary follow-up visit. The patient overall has been doing well. He has been using his BiPAP every night. He did get a different mask and that he is very comfortable with although he does not have the name all the company that makes it. He is going to look into it and let me know via portal or call. He does use [employer]. Once I know the mask that works for him I will requested from his [employer] company. His current settings are 11/7. We had decreased during the last visit. Sometimes he feels like he is having some vivid dreams in his like he is not getting enough pressure. Although his current apnea-hypopnea index is actually 0.3. This is reassuring that he really does not need too much pressure changes. Therefore will increase slightly to 12/8. He will try this in the let me now if additional changes are required. We did also review his CT scan of the chest. No significant findings. Does have a tiny 2 mm pulmonary nodule as well as the cystic lesion. She is concerned with a family history of significant cancers. I have reassured him that this is nothing to be concerned about and that will continue to follow closely with another CT scan in a year's time. The patient will follow-up after the CT scan. 03/07/2024 the patient is here for a pulmonary follow-up visit. He has a significant amount of weight loss. He is working closely with his primary care and other specialists because of some GI in renal issues. These seem to be stabilizing. He has been struggling with BiPAP. Still having episodes of shortness breath and tachypnea while sleeping. We did download the BiPAP. It seems like his AHI is elevated between 6-7 episodes per hour. His current settings of 12/8. This set up spontaneous. I switched her over to auto BiPAP in left settings as the fall. Will have him try the auto BiPAP for week and then he will call to further adjusted so I can download the data. Sounds like he needs more pressure. If he does not tolerate the auto BiPAP that I can always switching to regular spontaneous BiPAP and increase the settings. If he continues to be symptomatic also consider getting a blood gas to assess for hypercarbia or for metabolic acidosis to try explain the tachypnea. The patient is also concerned about the pulmonary nodules. His last CT scan was back in the fall 2022. He has numerous subcentimeter pulmonary nodules. He does have a positive family history of lung cancer both his that his brother and he is very concerned about the possibility of having cancer. Therefore will have him get a repeat CT scan will follow-up. The patient also again will call once she gets situated with the new settings on the BiPAP she can download the data in review it. 09/12/2024 the patient is here for a pulmonary follow-up visit. Is find out that he is having issues with his liver so he is trying to take care that. He may have a little cirrhosis. He is going to follow-up with his doctor soon. In the meantime he is also having some shoulder discomfort primarily the right 1 he is getting physical therapy for the from a respiratory status the patient did get a CT scan of the chest. We did review together. Appears that he has a little subpleural blebs although I would not call a significant emphysema as is mentioned in the report. The patient does have stable pulmonary nodules that have been stable now for couple years therefore we can hold off on additional imaging. He also has a bronchogenic cyst which is small and benign appearing. He does have some physical type of debris in the esophagus suggesting some degree of reflux disease. We did talk about making sure that he has is a bed elevated. He will try some bed risers. The patient has been using the BiPAP. BiPAP therapy has been affecting beneficial. Uses it a pressure 15/10. We initially try auto BiPAP but he did not tolerate that so we switched him back. Does wake up sometimes short of breath like he is getting too much pressure. Will try to decrease the pressure some to 14/11. The patient's AHI is 5.7 so therefore seems to be okay but denies give a bringing down more. He does wake up short of breath so try to decrease the pressure little bit. 03/27/2025 the patient is here for a pulmonary follow-up visit. Overall he is doing okay from a respiratory status. He does continue with the BiPAP with good effect. BiPAP therapy has been affecting beneficial. He does use it for more than 4 hours a night. He averages around 1 episode an hour which is reassuring. The patient has been struggling with a cough though the cough seems to be worsening in the last several weeks. Not getting any significant relief. He does have significant postnasal drip and also has had some reflux symptoms recently. The patient is concerned because his brother was diagnosed with lung cancer for the 2nd time in his concerned because of the increased risk that he has based on his family history. He has underlying pulmonary nodules. The last time that we reviewed his CAT scan was back in July 2024 demonstrating subcentimeter pulmonary nodules and also some mild emphysema. Will plan to repeat the CAT scan July 2025. The meantime will go ahead and treat him for sinusitis he will continue with his current BiPAP and will follow-up after his CAT scan. 08/21/2025 the patient is here for pulmonary follow-up visit. Overall the patient has been doing fairly okay although he is having hard time with the sleep. He is having significant insomnia. The trazodone was not helpful. Actually made it worse. The patient is also concerned that he does not want to take anything that causes too much drowsiness. He does need to wake up early. The patient is willing to try small dose of the Ambien. He knows to watching for any nature. The patient also needs to take the Ambien right at bedtime and avoid doing any activities after taking the medication except planning for sleep. He has been using the BiPAP. BiPAP therapy has been affecting beneficial. AHI is down to 0.1 which is reassuring. He continues use it with good effect. It has been affecting beneficial he does use it for more than 4 hours a night. We did review his CT scan of the chest. It appears that his pulmonary nodules have been stable for more than 2 years since reassuring. No additional serial CAT scans are warranted. Although is documented that his spleen is slightly enlarged. We did measure it was hard to compare to the other CAT scans but indeed it did look at large. He did talk to his primary care doctor about it. He is scheduled to have an ultrasound. He has also has a history of liver disease although I do not know the details. otherwise the patient is doing good he will follow up with his primary care doctor in maybe additional specialists to evaluate the spleen. the patient will return in 3-4 months if any issues arise she can always call further recommendations. REPLACED BY [facility] Medical History (Updated 03/27/25 @ 22:21 by Jeet Thompson MD) Chronic cough Family history of lung cancer Pulmonary nodule Lung cyst Dyspnea Chronic restrictive lung disease BRICE treated with BiPAP Family History (Updated 11/22/21 @ 13:49 by Felix Oliver MD) Brother Diabetes Social History Household Members: None Housing: Apartment Do you presently have visiting nurse or other home services: No Alcohol intake: never Patient Tobacco Use Status: Former Tobacco user Tobacco use type: Cigarette Years Smoked: 4 Years Advance Directives Date on File: 11/22/21 service: No Current occupational status: employed Review of Systems Const Denies chills, Reports difficulty sleeping, Reports fatigue, Denies fever(s), Denies weight gain and Denies weight loss ENT Denies dizziness, Denies lip swelling and Denies tongue swelling Card Denies chest pain, Denies leg edema, Denies lightheadedness, Denies palpitations, Reports dyspnea on exertion, Denies orthopnea and Denies other Resp Reports cough and Reports dyspnea on exertion GI Denies hematochezia and Denies change in stool character Musc Denies abnormal gait, Denies muscle weakness, Denies numbness, Denies radiating pain into limb and Denies tingling Neuro Denies abnormal gait, Denies dizziness, Denies numbness and Denies tingling Psych Denies no additional complaints Endo Reports fatigue and Denies palpitations Geovany/Lymph Denies easy bleeding and Denies lymphadenopathy Aller/Immun Denies lip swelling and Denies tongue swelling Physical Exam Vital Signs: Last Vital Signs Pulse 72 08/21/25 09:47 BP 124/74 08/21/25 09:47 Pulse Ox 95 08/21/25 09:47 Oxygen Delivery Method Room Air 08/21/25 09:47 BMI result Body Mass Index 41.3 Const General: alert HEENT General nose exam: Abnormal external nose present and Nasal discharge present Eyes Pupils: Equal, round and reactive pupils present Neck Neck: Yes normal visual inspection, Yes full ROM and Yes no lymphadenopathy Chest Chest palpation & inspection: normal inspection of the chest Resp Auscultation: no rales, no rhonchi, no wheezes and diminished lung sounds Cardio Rate: regular rate Rhythm: regular rhythm Heart sounds: S1 normal heart sound present and S2 normal heart sound present GI Palpation (GI): Soft to palpation and nontender Auscultation: normal bowel sounds General: Yes no CVA tenderness Back/Spine/Pelvis Back: no CVA tenderness Skin General skin exam: rashes and/or lesions noted Neuro Cranial nerves: Yes Equal, round and reactive pupils present Assessment & Plan Assessment & Plan (1) BRICE treated with BiPAP: Code(s): G47.33 - Obstructive sleep apnea (adult) (pediatric) Category: Medical Plan: continue BIPAP 08/14 (2) Chronic restrictive lung disease: Code(s): J98.4 - Other disorders of lung Category: Medical Plan: Weight management (3) Dyspnea: Comment: Deconditioning Code(s): R06.00 - Dyspnea, unspecified Category: Medical Qualifiers: Dyspnea type: shortness of breath Qualified Code(s): R06.02 - Shortness of breath Plan: Exercise program (4) Hypoxia: Code(s): R09.02 - Hypoxemia Category: Medical (5) Pulmonary nodule: Code(s): R91.1 - Solitary pulmonary nodule Category: Medical (6) Family history of lung cancer: Code(s): Z80.1 - Family history of malignant neoplasm of trachea, bronchus and lung Category: Medical (7) Chronic cough: Code(s): R05.3 - Chronic cough Category: Medical Plan continue BiPAP, AHI 0.1, 21/07 ,[employer] stopped Trazodone for sleep, cause dizziness start Ambien, will start 1/2 tab 15 min before sleep follow-up in 3-4 months Medications: New zolpidem (Ambien) 5 mg PO BEDTIME PRN 30 tabs 2RF sleep 30 days Coding Level of Care Code Add On Preventative Visit Only Diagnoses BRICE treated with BiPAP G47.33 Chronic restrictive lung disease J98.4 Shortness of breath R06.02 Dyspnea type: shortness of breath Hypoxia R09.02 Pulmonary nodule R91.1 Family history of lung cancer Z80.1 Chronic cough R05.3 Time Spent (min) 18
== END 2025-08-21 10:15 | disposition home or self-care (01) ==
LOC: HO.HPS 09:44
PROVIDERS: PCP Internal Medicine; Visit Provider Hospitalist
DX: G47.33 Obstructive sleep apnea (adult) (pediatric) (principal); J98.4 Other disorders of lung; R06.02 Shortness of breath; R09.02 Hypoxemia; R91.1 Solitary pulmonary nodule; Z80.1 Family history of malignant neoplasm of trachea, bronchus and lung; R05.3 Chronic cough
CPT/HCPCS: 99214; G2211